=== PATIENT | female | born 1960 | race Caucasian/White ===

== ENCOUNTER → 2019-03-25 09:45 | Outpatient (CLI) | payer OTHER, SELFPAY ==
--- NOTE | 2019-03-25 | DI.MG.S_ITS ---
BILATERAL DIGITAL SCREENING MAMMOGRAM 3D/2D WITH CAD: 03/25/2019 CLINICAL: Routine screening. Comparison is made to exams dated: 10/20/2013 mammogram, 01/04/2016 mammogram, and 11/18/2011 mammogram - [facility]. There are scattered fibroglandular elements in both breasts. Current study was also evaluated with a Computer Aided Detection (CAD) system. No significant masses, calcifications, or other findings are seen in either breast. There has been no significant interval change. IMPRESSION: NEGATIVE There is no mammographic evidence of malignancy. A 1 year screening mammogram is recommended. This exam was interpreted at Station ID: [id number]. NOTE: For mammograms, a report in lay terms will be sent to the patient. Approximately 15% of breast malignancies will not be visualized mammographically. In the management of a palpable breast mass, a negative mammogram must not discourage biopsy of a clinically suspicious lesion. Electronically Signed By: Bunny cruz/mari:03/25/2019 18:28:12 letter sent: Normal Exam ACR BI-RADS Category 1: Negative 3341F
== END ==
PROVIDERS: PCP Family Medicine; Visit Provider Nurse Practitioner Family
DX: Z12.31 Encounter for screening mammogram for malignant neoplasm of breast (principal); M81.0 Age-related osteoporosis without current pathological fracture
CPT/HCPCS: 77063; 77067; 77080

== ENCOUNTER → 2020-09-19 12:30 | Outpatient (CLI) | payer OTHER, SELFPAY | PROVIDERS: PCP Family Medicine; Referring Provider Family Medicine; Visit Provider Family Medicine | DX: M81.0 Age-related osteoporosis without current pathological fracture (principal); Z78.0 Asymptomatic menopausal state | CPT/HCPCS: 77080 ==

== ENCOUNTER → 2020-09-29 11:17 | Outpatient (CLI) | payer OTHER, SELFPAY ==
--- NOTE | 2020-09-29 11:19 | DI.MG.S_ITS ---
BILATERAL DIGITAL SCREENING MAMMOGRAM 3D/2D WITH CAD: 09/29/2020 CLINICAL: Routine screening. Comparison is made to exams dated: 03/25/2019 mammogram, 01/04/2016 mammogram, and 10/20/2013 mammogram - [facility]. There are scattered fibroglandular elements in both breasts. Current study was also evaluated with a Computer Aided Detection (CAD) system. No significant masses, calcifications, or other findings are seen in either breast. There has been no significant interval change. IMPRESSION: NEGATIVE There is no mammographic evidence of malignancy. A 1 year screening mammogram is recommended. This exam was interpreted at Station ID: [id number]. NOTE: For mammograms, a report in lay terms will be sent to the patient. Approximately 15% of breast malignancies will not be visualized mammographically. In the management of a palpable breast mass, a negative mammogram must not discourage biopsy of a clinically suspicious lesion. Electronically Signed By: Maximilian harris/mari:10/01/2020 13:50:42 letter sent: Normal Exam ACR BI-RADS Category 1: Negative 3341F
== END ==
PROVIDERS: PCP Family Medicine; Referring Provider Family Medicine; Visit Provider Family Medicine
DX: Z12.31 Encounter for screening mammogram for malignant neoplasm of breast (principal)
CPT/HCPCS: 77063; 77067

== ENCOUNTER → 2021-01-02 09:36 | Outpatient (CLI) | payer OTHER, SELFPAY ==
[2021-01-02] MEDS: COVID-19 VACC #1, MRNA(MOD) 100 MCG/0.5 ML VIAL IM (09:47)
== END ==
PROVIDERS: PCP Family Medicine; Visit Provider Internal Medicine
DX: Z23 Encounter for immunization (principal)
CPT/HCPCS: 0011A; 91301

== ENCOUNTER → 2021-01-30 09:08 | Outpatient (CLI) | payer OTHER, SELFPAY ==
[2021-01-30] MEDS: COVID-19 VACC #2, MRNA(MOD) 100 MCG/0.5 ML VIAL IM (09:15)
== END ==
PROVIDERS: PCP Family Medicine; Visit Provider Internal Medicine
DX: Z23 Encounter for immunization (principal)
CPT/HCPCS: 0012A; 91301

== ENCOUNTER → 2022-09-02 12:21 | Outpatient (CLI) | payer OTHER, SELFPAY ==
--- NOTE | 2022-09-02 12:22 | DI.MG.S_ITS ---
BILATERAL DIGITAL SCREENING MAMMOGRAM 3D/2D WITH CAD: 09/02/2022 CLINICAL: Routine screening. Comparison is made to exams dated: 09/29/2020 mammogram, 03/25/2019 mammogram, and 01/04/2016 mammogram - [facility]. There are scattered areas of fibroglandular density in both breasts (category b / 25%-50% glandular tissue). Current study was also evaluated with a Computer Aided Detection (CAD) system. No significant masses, calcifications, or other findings are seen in either breast. There has been no significant interval change. IMPRESSION: NEGATIVE There is no mammographic evidence of malignancy. A 1 year screening mammogram is recommended. Based on the Tyrer Cuzick model (a risk assessment model) the patient's lifetime risk is 8.2% and her 10 year risk is 3.5%. According to the ACR, ACS, and NCCN guidelines, an annual breast MRI exam along with mammogram is recommended if the patient's lifetime risk is 20% or greater. This exam was interpreted at Station ID: [id number]. NOTE: For mammograms, a report in lay terms will be sent to the patient. Approximately 15% of breast malignancies will not be visualized mammographically. In the management of a palpable breast mass, a negative mammogram must not discourage biopsy of a clinically suspicious lesion. Electronically Signed By: William pike/mari:09/02/2022 14:28:31 letter sent: Normal Exam ACR BI-RADS Category 1: Negative 3341F
== END ==
PROVIDERS: PCP Family Medicine; Referring Provider Family Medicine; Visit Provider Family Medicine
DX: Z12.31 Encounter for screening mammogram for malignant neoplasm of breast (principal); M81.0 Age-related osteoporosis without current pathological fracture; Z79.83 Long term (current) use of bisphosphonates; Z78.0 Asymptomatic menopausal state
CPT/HCPCS: 77063; 77067; 77080

== ENCOUNTER 2022-09-10 09:23 | Day surgery (SDC) | payer OTHER, SELFPAY ==
--- NOTE | 2022-09-10 | PATH_ITS ---
[facility] Accession Number: [id number] . 01 Material submitted: . colon - HEPATIC FLEXURE COLON POLYP . 01 Diagnosis: Colon, Hepatic Flexure, Biopsy: Colonic mucosa with benign lymphoid aggregate. Negative for hyperplasia, dysplasia, and malignancy. . MRV 09/15/2022 1439 Local . 01 Electronically signed: . Ewelina Taylor MD, Pathologist NPI- [id number] . 01 Gross description: . HEPATIC FLEXURE COLON POLYP: Received in formalin is 1 fragment(s) of dawson, soft tissue measuring 0.3 x 0.2 x 0.1 cm submitted entirely in 1 cassette(s) /CPE 09/11/2022 0925 Local . 01 Pathologist provided ICD-10: Z12.11 . 01 CPT . 019590 Specimen Comment: A courtesy copy of this report has been sent to [phone] Performed at: 01 [facility] [address] [place] [address], [place], [place] [id number] MD Didier Seals MD Phone: [phone]
[2022-09-10 10:17] VITALS: BMI 23.6
--- NOTE | 2022-09-10 10:20 | PM.HP.1 ---
History of Present Illness History of Present Illness Date Patient Seen: 09/10/22 Time Patient Seen: 10:20 Chief complaint: SDC Narrative: Patient is a very pleasant 61-year-old female who presented for colonoscopy. Her last colonoscopy was 01/28/2016. She does state she has a personal history colon polyps. A 5 year recheck was recommended, though unfortunately do not have that report available for review today. Patient History Medical History (Updated 09/10/22 @ 10:13 by Zhang Modi RN) Dog bite of right upper extremity HTN (hypertension) Hyperlipidemia Family & Social History Tobacco & Substance use: Smoking Status Never smoker Meds Home Medications and Allergies Home Medications Medication Instructions Recorded Confirmed Type atenolol 50 mg tablet 50 mg PO QDAY ##0 02/20/08 09/10/22 History atorvastatin 10 mg tablet 10 mg DAILY 09/10/22 09/10/22 History citalopram 40 mg tablet 40 mg DAILY 09/10/22 09/10/22 History ibandronate 150 mg tablet See Rx Instructions .Route .COMPLEX 09/10/22 09/10/22 History Allergies Allergy/AdvReac Type Severity Reaction Status Date / Time Sulfa (Sulfonamide Allergy Intermediate Swelling Verified 09/10/22 10:08 Antibiotics) Review of Systems Review of Systems ROS: Yes All systems reviewed with the patient and are negative except as otherwise documented Exam Const General: cooperative, healthy appearing, comfortable, well developed and No acute distress HENMT Head: normocephalic and atraumatic Resp Effort & Inspection: normal respiratory effort, able to speak in complete sentences and no audible wheezes Auscultation: clear to auscultation bilaterally Cardio Rate: regular rate Rhythm: regular rhythm GI Palpation: soft Assessment & Plan Assessment & Plan narrative: 1. Personal history colon polyps, last colonoscopy 01/28/2016 Colonoscopy today, further recommendations to follow Time Spent With Patient Critical Care time: I spent a total of [] minutes of critical care time on this patient's care today; this time is exclusive of procedural time.
[2022-09-10] MEDS: LACTATED RINGERS 1,000 ML 42 ML IV (10:31)
[2022-09-10 10:49] LABS: COVID19 -Nasal RAPID Negative (Negative)
[2022-09-10 11:45] VITALS: BP 115/60; PULSE 68; RESP 15; TEMP 36.3; O2SAT 100
--- NOTE | 2022-09-10 11:46 | P.OP.COLON_ITS ---
Operative Date/Time/Diagnoses Date of procedure: 09/10/22 Time of procedure: 11:22 Procedure Notes Procedure in detail: Surgeon: Meme Evangelista DO Procedure: Colonoscopy with polypectomy Preoperative diagnosis: 1. Personal history colon polyps last colonoscopy 01/28/2016 Postoperative diagnosis: 1. 3 mm polyp at the hepatic flexure removed with cold forceps 2. Sigmoid diverticulosis 3. Internal hemorrhoids 4. Normal-appearing terminal ileum Medications: Monitored anesthesia care Preanesthesia Assessment An H and P was performed/updated and the Px?s ASA class is2. The procedure was discussed in detail with the patient. The potential risks and complications including infection, bleeding, missed lesions, perforation, need for surgery in case of perforation, prolonged hospital stay, and were explained. A brief question and answer period was allotted and once all questions were answered, informed consent was obtained. The patient was brought back to the procedure room and placed on standard monitoring. The patient?s vital signs were monitored continuously throughout the entire procedure. Prior to starting, a timeout was performed to confirm the patient?s identity, allergies, medications, and procedure. Procedure in detail The patient was placed in left lateral decubitus position and once adequate sedation was obtained a BRYAN was performed. The digital rectal examination did not reveal any palpable lesions. The tip of the colonoscope was placed in the anal canal and advanced without difficulty all the way to the cecum and terminal ileum which was identified by the appendiceal orifice and the ileocecal valve. Careful examination of all sparks of the colon was performed with irrigation of any residual stool. 3 mm polyp was noted in the hepatic flexure this was removed with Jumbo forceps. Blood loss was minimal. Sigmoid diverticulosis was noted. Grade 1-2 internal hemorrhoids noted on retroflexion. Terminal ileum appeared unremarkable. Exam is otherwise unremarkable. The patient tolerated the procedure well and will be brought back to the recovery area to be discharged once criteria are met. The prep was judged to be good/excellent and adequate to identify polyps less than 5 mm. The withdrawal t usama was 9min. Complications There were no complications and estimated blood loss was minimal. Recommendations: Resume previous diet, consider high-fiber diet Continue outPx medications Follow up pathology results Repeat colonoscopy will be determined after pathology results are reviewed An emergency contact number was given to the patient for any complications related to the procedure
[2022-09-10 11:50] VITALS: BP 107/67; PULSE 66; RESP 16; O2SAT 99
[2022-09-10 11:55] VITALS: BP 114/70; PULSE 81; RESP 17; TEMP 36; O2SAT 99
[2022-09-10 11:56] VITALS: BP 130/72; PULSE 69; RESP 17; TEMP 36.2; O2SAT 99
== END 2022-09-10 12:15 | disposition home or self-care (01) ==
PROVIDERS: PCP Family Medicine; Referring Provider Student in an Organized Health Care Education/Training Program; Visit Provider Student in an Organized Health Care Education/Training Program
PROC: 0DJD8ZZ Inspection of Lower Intestinal Tract, Via Natural or Artificial Opening Endoscopic (ICD-10-PCS; CPT 45378; principal; 2022-09-10 10:30)
DX: Z12.11 Encounter for screening for malignant neoplasm of colon (principal); Z86.010 Personal history of colon polyps; Z20.822 Contact with and (suspected) exposure to COVID-19; K57.30 Diverticulosis of large intestine without perforation or abscess without bleeding; K64.8 Other hemorrhoids
CPT/HCPCS: 45380; 87635; C9803; J2704

== ENCOUNTER 2024-05-20 11:32 | Observation (INO) | payer OTHER, SELFPAY ==
[2024-05-20] VITALS (13 sets, daily range): BP systolic 131–192; BP diastolic 70–82; PULSE 61–69; RESP 10–18; TEMP 36.2–36.5; O2SAT 95–100; BMI 24.3; BMI 24.8
--- NOTE | 2024-05-20 11:47 | DI.RAD.S_ITS ---
PROCEDURE: XR CHEST 1V INDICATIONS: Possible stroke TECHNIQUE: One view of the chest was acquired. COMPARISON: None. FINDINGS: Surgical changes and devices: None. Lungs and pleura: Lungs are clear. No pleural effusions or pneumothorax. Mediastinum: Mediastinal contours appear normal. Heart size is normal. Bones and chest wall: No suspicious bony lesions. Overlying soft tissues appear unremarkable. IMPRESSION: No acute cardiopulmonary abnormality is seen. Dictated by: Kevin Gonzales M.D. on 05/20/2024 at 12:58 Approved by: Kevin Gonzales M.D. on 05/20/2024 at 12:58
--- NOTE | 2024-05-20 11:48 | ED_ITS ---
HPI - Neuro Symptoms/Deficit General Chief Complaint: Neuro Symptoms/Deficit Stated Complaint: thinks is having a stroke Time Seen by Provider: 05/20/24 11:47 Source: patient Mode of arrival: Ambulatory History of Present Illness HPI Narrative: 63-year-old female with no history of known prior stroke or TIA symptoms, last known well 1030 this morning when left home, patient called proximally 11:00 a.m. and seemed to be confused, complaining that she could not remember what she was doing, drove home, patient seemed to be confused about why came home, could not recall the previous phone call with the , seemed to have short-term memory problems recent events per , came in for evaluation, shortly after triage proximally 1230pm she seemed to feel better, could then remember recent events and her making phone calls earlier today. She had no numbness or tingling to face arm or leg. No injury or trauma. She is to take aspirin daily but but ran out months ago and has not restarted the medication. No other blood thinner medications in the past or recent. On Anticoagulants: No Related Data Home Medications Medication Instructions Recorded Confirmed atorvastatin 10 mg tablet 10 mg PO DAILY 09/10/22 05/20/24 citalopram 40 mg tablet 40 mg PO DAILY 09/10/22 05/20/24 ibandronate 150 mg tablet See Rx Instructions .Route .COMPLEX 09/10/22 05/20/24 metoprolol succinate 50 mg 50 mg PO DAILY 05/20/24 05/20/24 tablet,extended release 24 hr Allergies Allergy/AdvReac Type Severity Reaction Status Date / Time Sulfa (Sulfonamide Allergy Intermediate Swelling Verified 05/20/24 11:40 Antibiotics) Review of Systems Review of Systems Narrative: see HPI Hematologic/Lymphatic On Anticoagulants: No Patient History Medical History Hyperlipidemia HTN (hypertension) Dog bite of right upper extremity Surgical History History of History of tonsillectomy Social History household members: spouse Smoking Status: Never smoker alcohol intake: current Smoking Status: Never smoker alcohol intake frequency: a few times a week Substance Use Type: does not use Exam Narrative Exam Narrative: GENERAL: Well-developed patient, in mild distress. HEAD: Atraumatic. Normocephalic. EYES: Pupils equal round and reactive. Extraocular motions intact. No scleral icterus. No injection or drainage. ENT: Nose without bleeding, purulent drainage. Throat without erythema, tonsillar hypertrophy or exudate. Airway patent. NECK: Trachea midline. Non tender CARDIOVASCULAR: Regular rate and rhythm without murmurs, gallops, or rubs. RESPIRATORY: Clear to auscultation. Breath sounds equal bilaterally. No wheezes, rales, or rhonchi. GASTROINTESTINAL: Abdomen soft, non-tender, nondistended. EXTREMITIES: No edema or joint tenderness. BACK: Nontender without deformity or crepitance. No flank tenderness. NEURO: AOx3. Clear speech, symptoms apparently had resolved. Motor 5/5 face arm and leg. Cranial nerves intact 2 through 12. Spwzwk-bh-bhhl testing normal. No deficits or problems identified, NIHSS score 0. SKIN: No rash or erythema of visible areas Initial Vital Signs Initial Vital Signs: Vital Signs Temperature 97.7 F 05/20/24 11:36 Pulse Rate 68 05/20/24 11:36 Respiratory Rate 18 05/20/24 11:36 Blood Pressure 165/82 H 05/20/24 11:36 Pulse Oximetry 98 05/20/24 11:36 Oxygen Delivery Method Room Air 05/20/24 11:36 Course Orders Ordered: ED Orders 05/20/24 11:47 CT Stroke Stat XR chest 1V Stat EKG-12 Lead Stat 05/20/24 11:50 Complete Blood Count AUTO DIFF Stat Comprehensive Metabolic Panel Stat Magnesium Stat PTT Partial Thromboplastin Nino Stat Prothrombin Time INR Stat Troponin & CK Cardiac Panel Stat 05/20/24 12:00 CT angio head and neck Stat 05/20/24 13:00 MR head/brain wo con Stat 05/20/24 13:02 EC echo doppler complete Stat 05/20/24 13:50 Urine Drug Screen, Rapid Stat Acetaminophen (Acetaminophen 325 Mg Tablet) 650 mg PO Q6H PRN PRN Reason: Fever/Mild Pain (1-3) Last Admin: 05/20/24 20:19 Dose: 650 mg Documented By: MS Al Hydrox/Mg Hydrox/Simethicone (Mag Hydrox/Alum/Simeth 30 Ml Udc) 30 ml PO Q6HR PRN PRN Reason: Dyspepsia Atorvastatin Calcium (Atorvastatin 20 Mg Tablet) 10 mg PO BEDTIME [facility] Last Admin: 05/20/24 20:19 Dose: 10 mg Documented By: MS Citalopram Hydrobromide (Citalopram 10 Mg Tablet) 40 mg PO DAILY [facility] Clopidogrel Bisulfate (Clopidogrel 75 Mg Tablet) 75 mg PO DAILY [facility] Magnesium Hydroxide (Magnesium Hydroxide 30 Ml Udc) 30 ml PO DAILY PRN PRN Reason: Constipation Metoprolol Succinate (Metoprolol Er 50 Mg Tablet) 50 mg PO DAILY [facility] Naloxone HCl (Naloxone 0.4 Mg/Ml Vial) 0.2 mg IV Q2MIN PRN PRN Reason: Opiate Reversal Ondansetron HCl (Ondansetron 4 Mg/2 Ml Inj) 4 mg IV NOW PRN PRN Reason: Nausea And Vomiting Ondansetron HCl (Ondansetron 4 Mg Odt) 4 mg SL NOW PRN PRN Reason: Nausea And Vomiting Ondansetron HCl (Ondansetron 4 Mg/2 Ml Inj) 4 mg IV Q8HR PRN PRN Reason: Nausea And Vomiting Discontinued Medications Aspirin (Aspirin 81 Mg Chew Tab) 324 mg PO NOW ONE Stop: 05/20/24 13:02 Last Admin: 05/20/24 13:47 Dose: 324 mg Documented By: RB Aspirin (Aspirin Ec 325 Mg Tablet) 325 mg PO DAILY [facility] Clopidogrel Bisulfate (Clopidogrel 75 Mg Tablet) 300 mg PO NOW ONE Stop: 05/20/24 18:38 Last Admin: 05/20/24 18:52 Dose: 300 mg Documented By: CLL Vital Signs Vital signs: Vital Signs - 8 hr 05/20/24 12:30 05/20/24 12:31 05/20/24 12:31 Pulse Rate 63 62 Respiratory Rate 18 17 Blood Pressure 158/71 H Pulse Oximetry 98 100 Oxygen Delivery Method Room Air 05/20/24 13:00 05/20/24 13:01 05/20/24 13:01 Pulse Rate 66 65 Respiratory Rate 17 14 Blood Pressure 192/79 H Pulse Oximetry 96 96 Oxygen Delivery Method 05/20/24 13:30 05/20/24 13:32 05/20/24 13:32 Pulse Rate 66 63 Respiratory Rate 11 L Blood Pressure 170/81 H Pulse Oximetry 97 Oxygen Delivery Method Room Air MDM - Neuro Symptoms/Deficit Lab Data Attestation: I reviewed the patient's lab results. 05/20/24 11:50 05/20/24 11:50 Labs: Lab Results 05/20/24 Range/Units 11:50 WBC 6.7 (4.5-11.0) X10^3/uL RBC 4.27 (4.0-5.2) X10^6/uL Hgb 13.2 (12.0-16.0) g/dL Hct 39.8 (36-46) % MCV 93.1 (80-100) fL MCH 30.8 (26-34) PG MCHC 33.1 (30-36) % RDW 12.9 (11.6-14.8) % Plt Count 166 (150-400) X10^3/uL Neut % (Auto) 52.7 (50-75) % Lymph % (Auto) 36.5 (25-40) % [place] % (Auto) 8.9 (3-14) % Eos % (Auto) 1.2 L (2-4) % Baso % (Auto) 0.7 (0-2) % Neut # (Auto) 3500 (5495-1274) /uL Lymph # (Auto) 2500 (5397-8841) /uL [place] # (Auto) 600 (0-900) /uL Eos # (Auto) 100 (0-450) /uL Baso # (Auto) 0 (0-100) /uL PT 11.8 (9.4-12.5) SECONDS INR 1.0 (0.9-1.3) APTT 31 (25.1-36.5) SECONDS Sodium 140 (137-145) mmol/L Potassium 4.1 (3.4-5.1) mmol/L Chloride 106 (98-107) mmol/L Carbon Dioxide 25 (22-32) mmol/L BUN 15 (7-17) mg/dL Creatinine 0.67 (0.52-1.04) mg/dL Estimated GFR > 60 (>60) mL/min BUN/Creatinine Ratio 22.4 H (6-22) Glucose 104 (80-110) mg/dL Calcium 9.4 (8.4-10.2) mg/dL Magnesium 2.1 (1.6-2.3) mg/dL Total Bilirubin 0.7 (0.2-1.3) mg/dL AST 27 (14-36) IU/L ALT 24 (<35) IU/L Alkaline Phosphatase 64 (38-126) U/L Total Creatine Kinase 90 (30-135) U/L Troponin I < 0.012 (0.01-0.034) ng/mL Total Protein 7.1 (6.3-8.2) g/dL Albumin 4.5 (3.5-5.0) g/dL Globulin 2.6 (1.7-4.1) g/dL Albumin/Globulin Ratio 1.7 (1.0-2.8) Point of Care Testing Glucose POC [address] scan - head: Radiologist's Impression: Close Head/Neck CTA (Signed) Peng Hernandez - 05/20/[address] (Signed) Kevin Gonzales - 05/20/24 Chest X-Ray 05/20/24 [place] [address] CT Scan Report Signed Patient: Argelia Mccoy V MR#: [id number] : 1960 Acct:[id number] Age/Sex: 63 / F Date of Service: 05/20/24 Loc: ED Accession Number: [id number] Procedure: CT Stroke Ordering Provider: Rupert Kenny MD PROCEDURE: CT STROKE INDICATIONS: sudden onset memory loss TECHNIQUE: Noncontrast 4.5 mm thick angled axial sections acquired from the foramen magnum to the vertex, with coronal reformats. For radiation dose reduction, the following was used: automated exposure control, adjustment of mA and/or kV according to patient size. COMPARISON: None. FINDINGS: Image quality: Diagnostic. CSF spaces: Basal cisterns are patent. No extra-axial fluid collections. The ventricles are symmetric in size and shape. Brain: No intracranial bleeds or masses. There is cerebral volume loss for age, with resultant ventricular and sulcal prominence. There are periventricular and deep white matter chronic small vessel ischemic changes. There is intracranial internal carotid artery atherosclerosis. Skull and face: Calvarium and visualized facial bones appear intact, without suspicious lesions. Sinuses: Small fluid within the posterior left ethmoid air cells. Visualized sinuses and mastoids are otherwise clear. IMPRESSION: No acute intracranial pathology. Findings discussed with Dr. Kenny at the time of dictation. This study fulfills neurological imaging criteria for inclusion or exclusion of acute stroke therapies based on available published neurological guidelines. Dictated by: Kevin Gonzales M.D. on 05/20/2024 at 12:04 Approved by: Kevin Gonzales M.D. on 05/20/2024 at 12:08 CTA - brain/neck: Radiologist's Impression: [address] [address] [address] Scan Report Signed Patient: Argelia Mccoy V MR#: [id number] : 1960 Acct:[id number] Age/Sex: 63 / F Date of Service: 05/20/24 Loc: ED Accession Number: [id number] Procedure: CT angio head and neck Ordering Provider: Rupert Kenny MD PROCEDURE: CT ANGIO HEAD AND NECK INDICATIONS: Stroke symptoms TECHNIQUE: After the administration of intravenous contrast, 1 mm thick sections acquired from the aortic arch through the [place] of [place]. 3-dimensional qyfjybh-exssomhos-qsvcgsceip (MIP) and/or volume rendering reformats were acquired of the central intracranial vasculature and neck separately. For radiation dose reduction, the following was used: automated exposure control, adjustment of mA and/or kV according to patient size. COMPARISON: [facility], CT, CT STROKE, 05/20/2024, 11:51. (A prior carotid ultrasound is not available for review from the archive at the time of this dictation. FINDINGS: Image quality: There is artifact associated with the metallic hardware. Artifact from the metallic hardware is reduced by metal reconstruction algorithm. Limited by bolus timing, with venous contamination. BRAIN: CSF spaces: Ventricles are normal in size and shape. Basal cisterns are patent. No extra-axial fluid collections. Brain: No significant abnormality of the brain can be seen. Skull and face: Calvarium and facial bones appear intact, without suspicious lesions. Orbits appear normal. Sinuses: Sinuses and mastoids are clear. HEAD CT ANGIOGRAPHY: Anterior circulation: Intracranial internal carotid arteries are normal in size and flow. There is a diminutive left A1 segment, with a corresponding robust right A1 segment. This is considered to be a normal developmental variant of the [place], of typically no clinical consequence. The flow within the paired anterior cerebral arteries is otherwise normal and symmetric. The flow within the middle cerebral arteries is normal and symmetric. The anterior communicating artery is seen. No aneurysms are seen. Posterior circulation: Visualized portions of the vertebral arteries demonstrate normal caliber, and join to form a normal appearing basilar artery. Flow within the posterior cerebral arteries is normal and symmetric. No aneurysms are seen. NECK CT ANGIOGRAPHY: Carotid system: The great vessels demonstrate a conventional anatomy as they arise from the aortic arch. The origins of the common carotid arteries appear patent. The common carotid arteries demonstrate normal caliber and courses. The bifurcation regions are both widely patent. The internal carotid arteries demonstrate normal calibers and courses. Posterior circulation: The origins of the vertebral arteries both appear widely patent. The more superior extracranial portions of both vertebral arteries also demonstrate normal courses and calibers. They join to form a normal appearing basilar artery. Soft tissues: Visualized neck soft tissues demonstrate no suspicious abnormalities. Bones: No suspicious bony lesions. Visualized cervical spine appears normally aligned. IMPRESSION: No significant intracranial arterial abnormality is seen. No significant abnormality is seen within the arteries of the neck. Any quantitative measurements of stenosis were performed using NASCET criteria. Dictated by: Peng Hernandez M.D. on 05/20/2024 at 11:39 Approved by: Peng Hernandez M.D. on 05/20/2024 at 11:41 ECG Data Attestation: I personally reviewed and interpreted this ECG as follows: Interpretation: Normal sinus rhythm with rate of 67, no obvious ST segment elevation or depression changes. Fairly flat T-waves amplitude lead 3 but more upright in leads 2 and F contiguous inferior leads. OH 134, QRS 88, QTC 416. [facility] Narrative Medical decision making narrative: 63-year-old female with transient short term memory loss that apparently is new, last known well 1030, phoned her 11:00 a.m. and seemed to be not able to remember to short-term events or what she was just doing, and did not recall calling him prior when he arrived at home, symptoms seemed to resolve a proximally 12:30 p.m., for a proximally 1.5 hours duration. She no longer takes aspirin, or other blood thinner medications. CT head and CTA head and neck vessels stroke protocol ordered from triage. EKG shows normal sinus rhythm. Labs pending. Laboratory studies unremarkable. CT head noncontrast study no acute changes, see radiology report. CT angiogram head and neck vessels no thromboses or significant narrowing, see radiology report. Chewable aspirin 324 mg given orally. Patient has no obvious contraindication to MRI, MRI brain noncontrast study ordered, to be worked in schedule later today if possible. Echocardiogram with bubble study requested, if patient can be worked into the schedule later today if possible. Admit for continuous telemetry monitoring for TIA symptoms. PCP Dr. Gardiner, will contact for admission 1320, case discussed with PCP Dr. Richardson, accepts patient for admission to telemetry observation, aware MRI Brain and Echocardiogram studies requested, still to be performed. Critical Care Time Critical Care Time Total Critical Care Time: 35 Attestation: The high probability of a clinically significant, sudden or life threatening deterioration of the [cerebrovascular, neurologic, Cardiothoracic] system(s) required my full and direct attention, intervention and personal management. The aggregate critical care time was [35] minutes. This time is in addition to time spent performing reported procedures but includes the following: [x] Data Review and interpretation [x] Patient assessment and monitoring of vital signs [x] Documentation [x] Medication orders and management Discharge Plan Departure Patient Disposition: Admitted as Observation Clinical Impression: Transient ischemic attack Admit Date/Time: 05/20/24 13:35 Admit Provider: Dmitriy Gardiner
--- NOTE | 2024-05-20 12:00 | DI.CT.S_ITS ---
PROCEDURE: CT ANGIO HEAD AND NECK INDICATIONS: Stroke symptoms TECHNIQUE: After the administration of intravenous contrast, 1 mm thick sections acquired from the aortic arch through the [place] of [place]. 3-dimensional zqkoenn-frmzxoygd-rxytdkpmuy (MIP) and/or volume rendering reformats were acquired of the central intracranial vasculature and neck separately. For radiation dose reduction, the following was used: automated exposure control, adjustment of mA and/or kV according to patient size. COMPARISON: [facility], CT, CT STROKE, 05/20/2024, 11:51. (A prior carotid ultrasound is not available for review from the archive at the time of this dictation. FINDINGS: Image quality: There is artifact associated with the metallic hardware. Artifact from the metallic hardware is reduced by metal reconstruction algorithm. Limited by bolus timing, with venous contamination. BRAIN: CSF spaces: Ventricles are normal in size and shape. Basal cisterns are patent. No extra-axial fluid collections. Brain: No significant abnormality of the brain can be seen. Skull and face: Calvarium and facial bones appear intact, without suspicious lesions. Orbits appear normal. Sinuses: Sinuses and mastoids are clear. HEAD CT ANGIOGRAPHY: Anterior circulation: Intracranial internal carotid arteries are normal in size and flow. There is a diminutive left A1 segment, with a corresponding robust right A1 segment. This is considered to be a normal developmental variant of the [place], of typically no clinical consequence. The flow within the paired anterior cerebral arteries is otherwise normal and symmetric. The flow within the middle cerebral arteries is normal and symmetric. The anterior communicating artery is seen. No aneurysms are seen. Posterior circulation: Visualized portions of the vertebral arteries demonstrate normal caliber, and join to form a normal appearing basilar artery. Flow within the posterior cerebral arteries is normal and symmetric. No aneurysms are seen. NECK CT ANGIOGRAPHY: Carotid system: The great vessels demonstrate a conventional anatomy as they arise from the aortic arch. The origins of the common carotid arteries appear patent. The common carotid arteries demonstrate normal caliber and courses. The bifurcation regions are both widely patent. The internal carotid arteries demonstrate normal calibers and courses. Posterior circulation: The origins of the vertebral arteries both appear widely patent. The more superior extracranial portions of both vertebral arteries also demonstrate normal courses and calibers. They join to form a normal appearing basilar artery. Soft tissues: Visualized neck soft tissues demonstrate no suspicious abnormalities. Bones: No suspicious bony lesions. Visualized cervical spine appears normally aligned. IMPRESSION: No significant intracranial arterial abnormality is seen. No significant abnormality is seen within the arteries of the neck. Any quantitative measurements of stenosis were performed using NASCET criteria. Dictated by: Peng Hernandez M.D. on 05/20/2024 at 11:39 Approved by: Peng Hernandez M.D. on 05/20/2024 at 11:41
[2024-05-20 12:02] LABS: Add Manual Diff / Slide Review NO; Basophils Absolute Auto 0 /uL (0-100); Basophils Percent Auto 0.7 % (0-2); Eosinophils Absolute Auto 100 /uL (0-450); Eosinophils Percent Auto 1.2 % (2-4); Hematocrit 39.8 % (36-46); Hemoglobin 13.2 g/dL (12.0-16.0); Lymphocytes Absolute Auto 2500 /uL (1100-4500); Lymphocytes Percent Auto 36.5 % (25-40); Mean Corpuscular HGB Conc 33.1 % (30-36); Mean Corpuscular Hemoglobin 30.8 PG (26-34); Mean Corpuscular Volume 93.1 fL (80-100); Monocytes Absolute Auto 600 /uL (0-900); Monocytes Percent Auto 8.9 % (3-14); Neutrophils Absolute Auto 3500 /uL (1500-7000); Neutrophils Percent Auto 52.7 % (50-75); Platelet Count 166 X10^3/uL (150-400); Red Blood Cell Count 4.27 X10^6/uL (4.0-5.2); Red Cell Distribution Width 12.9 % (11.6-14.8); White Blood Cell Count 6.7 X10^3/uL (4.5-11.0)
--- NOTE | 2024-05-20 12:05 | PC.NURSE ---
Pt spouse reports last being with patient at 1030 this morning stating pt appeared and acted normal. Around 1100 pt called spouse and endorsed feeling weird and spouse states confusion. 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 Pt's spouse drove back to the house where patient was, and on his way their pt called again with confusion, feeling weird, and did not recall that she had previously called her . At this time stayed on the phone with patient until he got home. 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 Pt has recall now regarding selling the rental unit and buying property in [place]. She states thats so weird that I couldnt remember. NIH 0.
[2024-05-20 12:08] LABS: Prothrombin Time 11.8 SECONDS (9.4-12.5)
[2024-05-20 12:11] LABS: PTT Partial Thromboplastin Tim 31 SECONDS (25.1-36.5)
[2024-05-20 12:13] LABS: Alanine Aminotransferase 24 IU/L (<35); Albumin 4.5 g/dL (3.5-5.0); Albumin Globulin Ratio 1.7 (1.0-2.8); Alkaline Phosphatase 64 U/L (38-126); Aspartate Aminotransferase 27 IU/L (14-36); BUN Creatinine Ratio 22.4 (6-22); Bilirubin Total 0.7 mg/dL (0.2-1.3); Blood Urea Nitrogen 15 mg/dL (7-17); Calcium 9.4 mg/dL (8.4-10.2); Carbon Dioxide 25 mmol/L (22-32); Chloride 106 mmol/L (98-107); Creatine Kinase 90 U/L (30-135); Estimated Glomerular Filt Rate > 60 mL/min (>60); Globulin 2.6 g/dL (1.7-4.1); Glucose 104 mg/dL (80-110); HEMOLYSIS < 15 (0-50); Magnesium 2.1 mg/dL (1.6-2.3); Potassium 4.1 mmol/L (3.4-5.1); Sodium 140 mmol/L (137-145); Total Protein 7.1 g/dL (6.3-8.2)
--- NOTE | 2024-05-20 12:17 | EKG_ITS ---
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
[2024-05-20 12:25] LABS: Troponin I < 0.012 ng/mL (0.01-0.034)
--- NOTE | 2024-05-20 13:00 | DI.MRI.S_ITS ---
PROCEDURE: MR HEAD/BRAIN WO CON INDICATIONS: transient memory loss, recovered TECHNIQUE: Non-contrast axial T1 spin echo, axial T2 fast spin echo, sagittal and axial FLAIR, coronal T2 fast spin echo, axial gradient echo, axial diffusion and ADC through the brain. COMPARISON: [facility], CT, CT ANGIO HEAD AND NECK, 05/20/2024, 11:58. [facility], CT, CT STROKE, 05/20/2024, 11:51. FINDINGS: Image quality: Diagnostic, with note made of motion artifact. CSF spaces: Ventricles appear symmetric in size and shape. Basal cisterns are patent. No extra-axial fluid collections. Brain: No intracranial bleeds or mass effects. There is cerebral volume loss for age. There are periventricular and deep white matter chronic small vessel ischemic changes. Brainstem appears normal. Diffusion-weighted images show no acute infarct. No chronic ischemic insults. Normal intravascular flow voids are present. Skull and face: Calvarial bone marrow is normal in signal. Orbits are normal. Sinuses: Focal mucosal thickening can be seen within the inferior left maxillary sinus. Milder mucosal thickening can be seen elsewhere within the paranasal sinuses. No abnormal fluid is seen within the mastoid air cells. IMPRESSION: No findings of acute or subacute infarction can be seen. Dictated by: Peng Hernandez M.D. on 05/20/2024 at 14:03 Approved by: Peng Hernandez M.D. on 05/20/2024 at 14:04
[2024-05-20] MEDS: ASPIRIN 81 MG CHEW TAB 324 MG PO (13:47)
[2024-05-20 14:01] LABS: Ur Creatinine Normal (Normal); Ur Specific Gravity Normal (Normal); Urine pH Normal (Normal)
[2024-05-20 14:02] LABS: Urine Amphetamines Negative (Negative); Urine Barbiturates Negative (Negative); Urine Benzodiazepines Negative (Negative); Urine Cocaine Negative (Negative); Urine MDMA Negative (Negative); Urine Methadone Negative (Negative); Urine Methamphetamines Negative (Negative); Urine Opiates Negative (Negative); Urine Oxycodone Negative (Negative); Urine Phencyclidine Negative (Negative); Urine THC Negative (Negative); Urine Tricyclic Antidepressant Negative (Negative)
--- NOTE | 2024-05-20 15:28 | PC.NURSE ---
Addendum entered by Danitza Tatum R.N. 05/20/24 17:40: Patient is tolerating a general diet without any swallowing issues. Dr. Gardiner will be into see patient soon. Original Note: Patient states that she lost memory from the last 30 to 40 days and is slowly regaining her memory. She denies headache at this time. NIH scale a O. Patient down and back from MRI. She is resting in bed and visiting with her .
--- NOTE | 2024-05-20 18:31 | P.HP_ITS ---
History of Present Illness History of Present Illness Date Patient Seen: 05/20/24 Time Patient Seen: 18:31 Date of Onset of Symptoms: 05/20/24 Chief complaint: thinks is having a stroke Narrative: Patient is a 63-year-old female who presents with short term memory loss. Patient has history of known PFO with no previous treatment other than aspirin who is dates she has been off her aspirin for a month or 2. She otherwise has a history SVT. No other changes. Has been doing extremely well though had an event yesterday of SVT and just rested and it went away. She has been on metoprolol for that. Woke up today feeling great. 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 Lost her memory for most of that period of time. Called her did not know really what she was saying was confused. She had no numbness tingling difficulty with motor no other changes. No headaches no visual changes does have history of migraines. By the time she got to the ER approximately 2 hours later completely normal. Remembers everything except about a 10 minute window. She has otherwise felt well. And has no other changes or complaints. FOR[facility]LY [facility] Medical History Hyperlipidemia HTN (hypertension) Dog bite of right upper extremity Surgical History History of History of tonsillectomy Social History household members: spouse Smoking Status: Never smoker alcohol intake: current Meds Home Medications and Allergies Home Medications Medication Instructions Recorded Confirmed Type atorvastatin 10 mg tablet 10 mg PO DAILY 09/10/22 05/20/24 History citalopram 40 mg tablet 40 mg PO DAILY 09/10/22 05/20/24 History ibandronate 150 mg tablet See Rx Instructions .Route .COMPLEX 09/10/22 05/20/24 History metoprolol succinate 50 mg 50 mg PO DAILY 05/20/24 05/20/24 History tablet,extended release 24 hr Allergies Allergy/AdvReac Type Severity Reaction Status Date / Time Sulfa (Sulfonamide Allergy Intermediate Swelling Verified 05/20/24 11:40 Antibiotics) Review of Systems Review of Systems Narrative: Negative except above Exam Vital Signs (past 8 hours): - 05/20/24 11:36 05/20/24 11:50 05/20/24 12:04 Temperature 97.7 F Pulse Rate 68 67 69 Respiratory Rate 18 10 L Blood Pressure 165/82 H Pulse Oximetry 98 100 95 Oxygen Delivery Method Room Air Room Air 05/20/24 12:30 05/20/24 12:31 05/20/24 12:31 Temperature Pulse Rate 63 62 Respiratory Rate 18 17 Blood Pressure 158/71 H Pulse Oximetry 98 100 Oxygen Delivery Method Room Air 05/20/24 13:00 05/20/24 13:01 05/20/24 13:01 Temperature Pulse Rate 66 65 Respiratory Rate 17 14 Blood Pressure 192/79 H Pulse Oximetry 96 96 Oxygen Delivery Method 05/20/24 13:30 05/20/24 13:32 05/20/24 13:32 Temperature Pulse Rate 66 63 Respiratory Rate 11 L Blood Pressure 170/81 H Pulse Oximetry 97 Oxygen Delivery Method Room Air 05/20/24 15:00 Temperature 97.2 F L Pulse Rate 61 Respiratory Rate 16 Blood Pressure 138/70 Pulse Oximetry 100 Oxygen Delivery Method Oxygen Delivery Method Room Air Narrative Exam Narrative: Alert female middle-aged no acute distress HEENT exam is unremarkable neck supple without adenopathy JVD or bruits lungs are clear heart is regular rate and rhythm without murmurs clicks rubs or gallops abdomen is soft positive bowel sounds nontender. Neurologic exam shows cranial nerves 2-12 are intact motor is 5/5 reflexes 2+ and symmetric sensations intact. Did not ambulate Objective Labs 05/20/24 11:50 05/20/24 11:50 Labs: Laboratory Results - last 24 hr 05/20/24 05/20/24 11:50 13:50 WBC 6.7 RBC 4.27 Hgb 13.2 Hct 39.8 MCV 93.1 MCH 30.8 MCHC 33.1 RDW 12.9 Plt Count 166 Neut % (Auto) 52.7 Lymph % (Auto) 36.5 [place] % (Auto) 8.9 Eos % (Auto) 1.2 L Baso % (Auto) 0.7 Neut # (Auto) 3500 Lymph # (Auto) 2500 [place] # (Auto) 600 Eos # (Auto) 100 Baso # (Auto) 0 PT 11.8 INR 1.0 APTT 31 Sodium 140 Potassium 4.1 Chloride 106 Carbon Dioxide 25 BUN 15 Creatinine 0.67 Estimated GFR > 60 BUN/Creatinine Ratio 22.4 H Glucose 104 Calcium 9.4 Magnesium 2.1 Total Bilirubin 0.7 AST 27 ALT 24 Alkaline Phosphatase 64 Total Creatine Kinase 90 Troponin I < 0.012 Total Protein 7.1 Albumin 4.5 Globulin 2.6 Albumin/Globulin Ratio 1.7 U Opiates 300ng/mL cut Negative Ur Oxycodone Screen Negative Urine Methadone Screen Negative Ur Barbiturates Screen Negative U Tricyclic Antidepress Negative Ur Phencyclidine Scrn Negative Ur Amphetamines Screen Negative U Methamphetamines Scrn Negative Ur MDMA Scrn (Ecstasy) Negative U Benzodiazepines Scrn Negative Urine Cocaine Screen Negative U Marijuana (THC) Screen Negative Urine pH Normal Urine Specific [place] Normal Ur Creatinine Normal Assessment & Plan Assessment & Plan narrative: Memory changes. Possible TIA versus possible migraine. At this point with patient off of her aspirin having known PFO possible TIA. CT CT angio MRI all normal. No evidence of abnormality on tele or EKG. Although arrhythmias certainly possible. At this point discussed with the patient she would like to start Plavix at least short term. 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 Based on what they feel and her stability we will not push any further for migraine treatment or other options. Patient understands questions answered certainly completely recovered at this point. History of PFO. Will follow-up echo and follow from there. History of SVT. On metoprolol will continue. Hyperlipidemia. Continue usual meds. Anxiety. Continue citalopram Code status full. DVT prophylaxis should be adequately covered with Plavix ambulation low risk for DVT no evidence for need for Lovenox Disposition home discharge tomorrow. Time-Based Coding :: [TOTAL MINUTES] spent with patient and on the chart (including review of chart, obtaining history, exam, reviewing outside data, placing orders, documenting exam and treatment plan, and counseling patient) on [DATE]. Quality VTE Deep Vein Thrombosis/Pulmonary Embolism Present on Admission: No
[2024-05-20] MEDS: CLOPIDOGREL 75 MG TABLET 300 MG PO (18:52)
[2024-05-20] MEDS: ACETAMINOPHEN 325 MG TABLET 650 MG PO (20:19)
[2024-05-20] MEDS: ATORVASTATIN 20 MG TABLET 10 MG PO (20:19)
[2024-05-21 04:47] VITALS: BP 127/72; PULSE 72; RESP 16; TEMP 36.8; O2SAT 98
[2024-05-21 05:27] LABS: Add Manual Diff / Slide Review NO; Basophils Absolute Auto 0 /uL (0-100); Basophils Percent Auto 0.5 % (0-2); Eosinophils Absolute Auto 100 /uL (0-450); Eosinophils Percent Auto 1.5 % (2-4); Hematocrit 38.7 % (36-46); Lymphocytes Absolute Auto 2200 /uL (1100-4500); Lymphocytes Percent Auto 35.5 % (25-40); Mean Corpuscular HGB Conc 33.6 % (30-36); Mean Corpuscular Volume 92.2 fL (80-100); Monocytes Absolute Auto 600 /uL (0-900); Monocytes Percent Auto 9.1 % (3-14); Neutrophils Absolute Auto 3400 /uL (1500-7000); Neutrophils Percent Auto 53.4 % (50-75); Platelet Count 164 X10^3/uL (150-400); Red Blood Cell Count 4.19 X10^6/uL (4.0-5.2); Red Cell Distribution Width 13.1 % (11.6-14.8); White Blood Cell Count 6.3 X10^3/uL (4.5-11.0)
[2024-05-21 05:39] LABS: BUN Creatinine Ratio 16.9 (6-22); Blood Urea Nitrogen 11 mg/dL (7-17); Calcium 9.2 mg/dL (8.4-10.2); Carbon Dioxide 27 mmol/L (22-32); Chloride 108 mmol/L (98-107); Estimated Glomerular Filt Rate > 60 mL/min (>60); Glucose 99 mg/dL (80-110); HEMOLYSIS < 15 (0-50); Potassium 4.2 mmol/L (3.4-5.1); Sodium 140 mmol/L (137-145)
[2024-05-21 07:00] VITALS: O2SAT 98
[2024-05-21 08:00] VITALS: BP 130/67; PULSE 74; RESP 16; TEMP 36.4; O2SAT 97
[2024-05-21] MEDS: METOPROLOL ER 50 MG TABLET PO (08:31)
[2024-05-21] MEDS: CLOPIDOGREL 75 MG TABLET PO (08:31)
[2024-05-21] MEDS: CITALOPRAM 10 MG TABLET 40 MG PO (08:31)
--- NOTE | 2024-05-21 09:26 | CM.DANOTE ---
Initial DCP Assessment Note Pt is a 63 yo female, resident of [place], arrives with stroke like sx, admitted for stroke work up PCP: Dmitriy Gardiner Payer: Leo Reviewed chart, met w/patient to introduce self and role. 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 Patient eager to speak with the attending provider today and eager to return home, plans to follow closely with cardiology. No barriers identified at this time to patient's safe discharge home w/family to assist; close outpatient f/u recommended. CM team will plan to follow clinical course closely in case any DC needs or concerns arise. 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 No History Provided By Patient,Medical Record Prior Living Arrangements House Household Members spouse Type of transporation used prior to Drives own vehicle admit Independent with ADL's Yes Is patient alert and oriented? Yes Barriers to Discharge No Comment Outpatient follow up recommended. Discharge Plan Home Transportation Arrangement Family Referrals Initiated None needed
--- NOTE | 2024-05-21 10:14 | PM.DS.1 ---
History of Present Illness History of Present Illness Date Patient Seen: 05/21/24 Time Patient Seen: 10:14 Date of Onset of Symptoms: 05/20/24 Chief complaint: thinks is having a stroke Narrative: Patient is a 63-year-old female who presents with short term memory loss. Patient has history of known PFO with no previous treatment other than aspirin who is dates she has been off her aspirin for a month or 2. She otherwise has a history SVT. No other changes. Has been doing extremely well though had an event yesterday of SVT and just rested and it went away. She has been on metoprolol for that. Woke up today feeling great. 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 Lost her memory for most of that period of time. Called her did not know really what she was saying was confused. She had no numbness tingling difficulty with motor no other changes. No headaches no visual changes does have history of migraines. By the time she got to the ER approximately 2 hours later completely normal. Remembers everything except about a 10 minute window. She has otherwise felt well. And has no other changes or complaints. Discharge Providers Provider Date of admission: 05/20/24 13:35 Discharge Date: 05/21/24 Primary care physician: Dmitriy Gardiner MD Discharge provider: Dmitriy Gardiner MD Summary Hospital Course Discharge Diagnosis: Memory changes History of PFO History of SVT Hyperlipidemia Anxiety Hospital Course: Memory changes. Patient was admitted to the hospital with completely normalize symptoms. Normal exam. CT CTA MRI all normal. Echo is pending at this time still. Tele with no abnormality. Patient with history of PFO and was started on aspirin after discussion with the patient she would like to go to Plavix. Which is not unreasonable at least for the 1st 4-6 weeks. Patient without symptoms. Question whether this is secondary to migraine or possible TIA. Unclear at this time. I am not sure how we are going to clarify. We are going to stay on her Plavix we are going to have the events director see her has not outpatient and we will re-evaluate. She understands questions answered discussed options follow-up next week. History of PFO. Patient echo is pending. But anticipate no change. Will not see definitively secondary to no bubble study. Will follow up with events director but will discharge on Plavix. History of SVT. On metoprolol will continue. Will follow. No other change. Tele was negative. Doubt this is significant blood pressure was slightly elevated will have to follow but no change at this time. Hyperlipidemia. Usual meds no change Anxiety stable. Exam Vital Signs (past 8 hours): - 05/21/24 04:47 05/21/24 07:00 05/21/24 08:00 Temperature 98.2 F 97.6 F Pulse Rate 72 74 Respiratory Rate 16 16 Blood Pressure 127/72 130/67 Pulse Oximetry 98 98 97 Oxygen Delivery Method Room Air Oxygen Delivery Method Room Air Narrative Exam Narrative: Alert female in no acute distress. Lungs are clear heart is regular rate and rhythm neurologic exam is unremarkable Objective Labs 05/21/24 04:40 05/21/24 04:40 Labs: Laboratory Results - last 24 hr 05/20/24 05/20/24 05/21/24 11:50 13:50 04:40 WBC 6.7 6.3 RBC 4.27 4.19 Hgb 13.2 13.0 Hct 39.8 38.7 MCV 93.1 92.2 MCH 30.8 31.0 MCHC 33.1 33.6 RDW 12.9 13.1 Plt Count 166 164 Neut % (Auto) 52.7 53.4 Lymph % (Auto) 36.5 35.5 [place] % (Auto) 8.9 9.1 Eos % (Auto) 1.2 L 1.5 L Baso % (Auto) 0.7 0.5 Neut # (Auto) 3500 3400 Lymph # (Auto) 2500 2200 [place] # (Auto) 600 600 Eos # (Auto) 100 100 Baso # (Auto) 0 0 PT 11.8 INR 1.0 APTT 31 Sodium 140 140 Potassium 4.1 4.2 Chloride 106 108 H Carbon Dioxide 25 27 BUN 15 11 Creatinine 0.67 0.65 Estimated GFR > 60 > 60 BUN/Creatinine Ratio 22.4 H 16.9 Glucose 104 99 Calcium 9.4 9.2 Magnesium 2.1 Total Bilirubin 0.7 AST 27 ALT 24 Alkaline Phosphatase 64 Total Creatine Kinase 90 Troponin I < 0.012 Total Protein 7.1 Albumin 4.5 Globulin 2.6 Albumin/Globulin Ratio 1.7 U Opiates 300ng/mL cut Negative Ur Oxycodone Screen Negative Urine Methadone Screen Negative Ur Barbiturates Screen Negative U Tricyclic Antidepress Negative Ur Phencyclidine Scrn Negative Ur Amphetamines Screen Negative U Methamphetamines Scrn Negative Ur MDMA Scrn (Ecstasy) Negative U Benzodiazepines Scrn Negative Urine Cocaine Screen Negative U Marijuana (THC) Screen Negative Urine pH Normal Urine Specific [place] Normal Ur Creatinine Normal PFSH Medical History Hyperlipidemia HTN (hypertension) Dog bite of right upper extremity Surgical History History of History of tonsillectomy Social History household members: spouse Smoking Status: Never smoker alcohol intake: current Discharge Assessment & Plan Assessment and Plan Assessment: Improved Plan of Treatment: Discharge home Discharge Plan Discharge Plan Patient Disposition: Home Discharge orders & Medications Prescriptions: New clopidogrel 75 mg Tablet 75 mg PO DAILY Qty: 30 1RF Continued metoprolol succinate 50 mg tablet extended release 24 hr 50 mg PO DAILY ibandronate 150 mg tablet See Rx Instructions .ROUTE .COMPLEX Patient Comments: TAKE ONE TABLET BY MOUTH ONCE MONTHLY WITH LARGE GLASS OF WATER. DO NOT LAY DOWN FOR 45 MINUTES AFTER TAKING. Rx Instructions: bone density drug citalopram 40 mg tablet 40 mg PO DAILY Patient Comments: TAKE 1 TABLET BY MOUTH DAILY FOR DEPRESSION OR ANXIETY atorvastatin 10 mg tablet 10 mg PO DAILY Patient Comments: TAKE 1 TABLET BY MOUTH EVERY DAY Follow up/Referrals: Dmitriy Gardiner MD [Primary Care Provider] - 05/24/24 (Call for appointment on Thursday for Thursday or Thursday) Discharge Health Status Multidrug resistant organism: No MDRO Diet/Activity/Treatments Diet: Diet as Tolerated Activity: As tolerated Visit Report/Discharge Packet Stand Alone Forms: Patient Portal/API, Stroke Signs & Symptoms Discharge Data Primary Care Provider: Dmitriy Gardiner Attending Provider: Dmitriy Gardiner Admit Date/Time: 05/20/24 13:35 Quality VTE Deep Vein Thrombosis/Pulmonary Embolism Present on Admission: No
--- NOTE | 2024-05-23 16:26 | DI.ECHO.S_ITS ---
[place] [place] [facility]+ [facility] : : [id number] : : [id number] : : Phone: [phone] Echocardiogram Report + + :Name: CASSIE MANUEL V Study Date: 05/20/2024 Height: 67 in : :[facility] ReadingLocation: Weight: 155 lb : : Gender: Female BSA: 1.8 m2 : :: 1960 Age: 63 yrs BP: 138/70 mmHg: :Reason For Study: TIA : :Ordering Physician: LETICIA, : :JOSE EDUARDO Performed By: Kimberly Claudio : :Referring: JOSE EDUARDO KELLY : + + Interpretation Summary The patient was in normal sinus rhythm during the exam. The left ventricle is normal in size and wall thickness. The left ventricular ejection fraction is normal. The ejection fraction is estimated to be 60-65%. There has been no significant change in LVEF since the previous exam. The right ventricle is normal size. The right ventricular systolic function is normal. On color Doppler there is [id number] interatrial shunt. Positive bubble study was performed on last echocardiogram in 09-21-2022 so bubble study was not repeated today. There is mild to moderate tricuspid regurgitation. Compared to the prior echo exam, there has been an increase in TR severity. The right ventricular systolic pressure is estimated to be at least 31 mmHg based on an estimated right atrial pressure of 3 mm Hg. Procedure: A two-dimensional transthoracic echocardiogram with color flow and Doppler was performed. The study quality was technically adequate. Comparison is made with the echocardiogram of 2021. The heart rate ranged between 61-73 bpm during the study. The patient was in normal sinus rhythm during the exam. Left Ventricle: The left ventricle is normal in size and wall thickness. There is no thrombus. The ejection fraction is estimated to be 60-65%. The left ventricular ejection fraction is normal. There has been no significant change since the previous exam. There are no focal wall motion abnormalities. Diastolic parameters suggest probable normal left ventricular diastolic function and normal filling pressures. Right Ventricle: The right ventricle is normal size. The right ventricular systolic function is normal. Atria: The left atrium is mildly dilated. Right atrial size is normal. A patent foramen ovale is present. On color Doppler there is [id number] interatrial shunt. Positive bubble study was performed on last echocardiogram in 09-21-2022 so bubble study was not repeated today. Mitral Valve: The mitral valve is normal. There is trace mitral regurgitation. Aortic Valve: The aortic valve is trileaflet. The aortic valve opens well. There is no aortic valve stenosis. No aortic regurgitation is present. Tricuspid Valve: The tricuspid valve leaflets are thin and pliable. There is mild to moderate tricuspid regurgitation. The right ventricular systolic pressure is estimated to be at least 31 mmHg based on an estimated right atrial pressure of 3 mm Hg. Compared to the prior echo exam, there has been an increase in TR severity. Pulmonic Valve: The pulmonic valve is not well seen, but is grossly normal. There is trace pulmonic regurgitation. Great Vessels: The aortic root is normal size. The ascending aorta is normal in size. The aortic arch is normal in size. The IVC is of normal diameter and collapses greater than 50% with a sniff. This suggests a low right atrial pressure of 3 mm Hg. Pericardium/ Pleura There is no pericardial effusion. There is no pleural effusion. MMode/2D Measurements & Calculations LVIDd: 4.9 cm LVOT diam: 2.0 cm LVIDs: 2.5 cm Ao root diam: 3.4 cm FS: 48.8 % asc Aorta Diam: 2.8 cm EPSS: 0.41 cm Ao Arch Diam (Prox Trans): 2.6 cm IVSd: 0.73 cm LVPWd: 0.63 cm LV burroughs. diameter/BSA (cm/m^2): 2.7 LV sys. diameter/BSA (cm/m^2): 1.4 LA A2 area: 22.3 cm2 RA long axis: 5.4 cm LA A4 area: 25.7 cm2 RA area: 19.6 cm2 LA length (vol): 6.1 cm RA vol: 60.3 ml LA vol: 80.3 ml RA : 33.2 ml/m2 LA vol index: 44.3 ml/m2 IVC diam: 1.8 cm TAPSE: 2.4 cm Doppler Measurements & Calculations Ao V2 max: 118.3 cm/sec LVOT Max Karel: 103.2 cm/sec Ao V2 mean: 81.2 cm/sec LV V1 max P.3 mmHg Ao max P.6 mmHg LV V1 VTI: 22.3 cm Ao mean P.0 mmHg PAUL(I,D): 2.5 cm2 Ao V2 VTI: 28.0 cm PAUL(V,D): 2.7 cm2 sev ratio: 0.80 PAUL indexed to BSA (cm^2/m^2): 1.4 MV E max karel: 61.8 cm/sec TR max karel: 266.4 cm/sec MV A max karel: 53.3 cm/sec TR max P.4 mmHg MV E/A: 1.2 PA V2 max: 66.9 cm/sec Med Peak E' Karel: 6.7 cm/sec PA V2 mean: 44.0 cm/sec E/E' med: 9.2 PA mean P.91 mmHg Lat Peak E' Karel: 9.3 cm/sec E/E' lat: 6.6 E/e' average: 7.9 MV dec time: 0.20 sec SV(LVOT): 70.1 ml Reading Physician:05:20 PM
== END 2024-05-21 10:49 | disposition home or self-care (01) ==
LOC: ED 13:12 → AC 13:35
PROVIDERS: Admitting Provider Family Medicine; Emergency Provider Emergency Medicine; PCP Family Medicine; Referring Provider Emergency Medicine; Visit Provider Family Medicine
DX: R41.3 Other amnesia (principal); R41.0 Disorientation, unspecified; F41.9 Anxiety disorder, unspecified; E78.5 Hyperlipidemia, unspecified
CPT/HCPCS: 36415; 70450; 70496; 70498; 70551; 71045; 80048; 80053; 80305; 82550; 82962; 83735; 84484; 85025; 85610; 85730; 93005; 93010; 93306; 99285; 99291; G0378; Q9967

== ENCOUNTER → 2024-09-30 11:31 | Outpatient (CLI) | payer OTHER, SELFPAY ==
[2024-05-20 14:11] VITALS: BMI 24.8
--- NOTE | 2024-09-30 11:32 | DI.MG.S_ITS ---
BILATERAL DIGITAL SCREENING MAMMOGRAM 3D/2D WITH CAD: 09/30/2024 CLINICAL: Routine screening. Comparison is made to exams dated: 09/02/2022 mammogram, 09/29/2020 mammogram, and 03/25/2019 mammogram - [facility]. There are scattered areas of fibroglandular density (category b / 25%-50% glandular tissue). Current study was also evaluated with a Computer Aided Detection (CAD) system. No significant masses, calcifications, or other findings are seen in either breast. There has been no significant interval change. IMPRESSION: NEGATIVE There is no mammographic evidence of malignancy. A 1 year screening mammogram is recommended. Based on the Tyrer Cuzick model (a risk assessment model) the patient's lifetime risk is 7.7% and her 10 year risk is 3.6%. According to the ACR, ACS, and NCCN guidelines, an annual breast MRI exam along with mammogram is recommended if the patient's lifetime risk is 20% or greater. This exam was interpreted at Station ID: [id number]. NOTE: For mammograms, a report in lay terms will be sent to the patient. Approximately 15% of breast malignancies will not be visualized mammographically. In the management of a palpable breast mass, a negative mammogram must not discourage biopsy of a clinically suspicious lesion. Electronically Signed By: Bev Clements M.D., Ph.D. michael/mari:10/03/2024 05:12:16 letter sent: Normal Exam ACR BI-RADS Category 1: Negative
== END ==
PROVIDERS: PCP Family Medicine; Referring Provider Family Medicine; Visit Provider Family Medicine
DX: Z12.31 Encounter for screening mammogram for malignant neoplasm of breast (principal)
CPT/HCPCS: 77063; 77067

== ENCOUNTER 2024-10-26 15:13 | Emergency (ER) | payer OTHER, SELFPAY ==
[2024-05-20 14:11] VITALS: BMI 24.8
[2024-10-26] VITALS (15 sets, daily range): BP systolic 141–186; BP diastolic 67–86; PULSE 64–72; RESP 12–18; TEMP 36.8–37.1; O2SAT 96–99; BMI 24.0
--- NOTE | 2024-10-26 15:22 | DI.CT.S_ITS ---
PROCEDURE: CT HEAD/BRAIN WO CON INDICATIONS: loss of memory,confusion TECHNIQUE: Noncontrast 4.5 mm thick angled axial sections acquired from the foramen magnum to the vertex, with coronal and sagittal reformats. For radiation dose reduction, the following was used: automated exposure control, adjustment of mA and/or kV according to patient size. COMPARISON: [facility], CT, CT STROKE, 05/20/2024, 11:51. [facility], CT, CT ANGIO HEAD AND NECK, 05/20/2024, 11:58. [facility], CT, CT ANGIO HEAD AND NECK, 10/26/2024, 15:38. [facility], MR, MR HEAD/BRAIN WO CON, 05/20/2024, 14:35. FINDINGS: Image quality: Diagnostic. CSF spaces: Basal cisterns are patent. No extra-axial fluid collections. The ventricles are symmetric in size and shape. Brain: No intracranial bleeds or masses. There is cerebral volume loss for age, with resultant ventricular and sulcal prominence. There are periventricular and deep white matter chronic small vessel ischemic changes. There is intracranial internal carotid artery atherosclerosis. Skull and face: Calvarium and visualized facial bones appear intact, without suspicious lesions. Sinuses: Visualized sinuses and mastoids are clear. IMPRESSION: No acute intracranial pathology. Similar to priors. Dictated by: Peng Hernandez M.D. on 10/26/2024 at 14:52 Approved by: Peng Hernandez M.D. on 10/26/2024 at 14:53
--- NOTE | 2024-10-26 15:22 | DI.CT.S_ITS ---
PROCEDURE: CT ANGIO HEAD AND NECK INDICATIONS: loss of memory,confusion TECHNIQUE: After the administration of intravenous contrast, 1 mm thick sections acquired from the aortic arch through the [place] of [place]. 3-dimensional cbonhqk-pscnsheuu-bolvzkftdk (MIP) and/or volume rendering reformats were acquired of the central intracranial vasculature and neck separately. For radiation dose reduction, the following was used: automated exposure control, adjustment of mA and/or kV according to patient size. COMPARISON: [facility], CT, CT HEAD/BRAIN WO CON, 10/26/2024, 15:38. [facility], MR, MR HEAD/BRAIN WO CON, 05/20/2024, 14:35. [facility], CT, CT ANGIO HEAD AND NECK, 05/20/2024, 11:58. FINDINGS: Image quality: Limited by bolus timing, with venous contamination. There is streak artifact seen through the level of the shoulders. BRAIN: CSF spaces: Ventricles are normal in size and shape. Basal cisterns are patent. No extra-axial fluid collections. Brain: No significant abnormality of the brain can be seen. Skull and face: Calvarium and facial bones appear intact, without suspicious lesions. Orbits appear normal. Sinuses: An apparent mucous retention cysts can be seen within the left maxillary sinus. The paranasal sinuses otherwise appear clear. No abnormal fluid is seen within the mastoid air cells. HEAD CT ANGIOGRAPHY: Anterior circulation: Intracranial internal carotid arteries are normal in size and flow. The flow within the paired anterior cerebral arteries is normal and symmetric. The flow within the middle cerebral arteries is normal and symmetric. The anterior communicating artery is seen. No aneurysms are seen. Posterior circulation: Visualized portions of the vertebral arteries demonstrate normal caliber, and join to form a normal appearing basilar artery. Flow within the posterior cerebral arteries is normal and symmetric. No aneurysms are seen. NECK CT ANGIOGRAPHY: Carotid system: The great vessels demonstrate a conventional anatomy as they arise from the aortic arch. The origins of the common carotid arteries appear patent. The common carotid arteries demonstrate normal caliber and courses. The bifurcation regions are both widely patent. The internal carotid arteries demonstrate normal calibers and courses. Posterior circulation: The origins of the vertebral arteries both appear widely patent. The more superior extracranial portions of both vertebral arteries also demonstrate normal courses and calibers. They join to form a normal appearing basilar artery. Soft tissues: Visualized neck soft tissues demonstrate no suspicious abnormalities. Bones: No suspicious bony lesions. Visualized cervical spine appears normally aligned. Zqzu-lu-xvqgqpnd cervical spine degenerative change can be seen, which is worst inferiorly. IMPRESSION: No imaging explanation is found for this patient's presenting symptoms. Within the intracranial arterial system, no significant abnormality can be seen. No significant carotid abnormality can be seen. Vertebral arteries within normal limits. Any quantitative measurements of stenosis were performed using NASCET criteria. Dictated by: Peng Hernandez M.D. on 10/26/2024 at 14:54 Approved by: Peng Hernandez M.D. on 10/26/2024 at 14:56
--- NOTE | 2024-10-26 15:22 | DI.RAD.S_ITS ---
PROCEDURE: XR CHEST 1V INDICATIONS: Possible stroke TECHNIQUE: One view of the chest was acquired. COMPARISON: [facility], CR, XR CHEST 1V, 05/20/2024, 11:48. FINDINGS: Surgical changes and devices: None. Lungs and pleura: Lungs are clear. No pleural effusions or pneumothorax. Mediastinum: Mediastinal contours appear normal. Heart size is normal. Bones and chest wall: No suspicious bony lesions. Overlying soft tissues appear unremarkable. IMPRESSION: No acute cardiopulmonary pathology. Dictated by: Junior Hinton M.D. on 10/26/2024 at 16:27 Approved by: Junior Hinton M.D. on 10/26/2024 at 16:27
--- NOTE | 2024-10-26 15:29 | EKG_ITS ---
[address] [address] Test Date: 2024-10-26 Pat Name: Argelia Mccoy Department: Room: Gender: Female [employer] Supervisor: PATRICK : 1960 Requested By: Order Number: [id number] Reading MD: Dennys Whitlock Measurements Intervals [place] Rate: 72 P: 15 WI: 126 QRS: 53 QRSD: 82 T: 37 QT: 394 QTc: 431 Interpretive Statements Normal sinus rhythm Septal infarct , age undetermined Electronically Signed On 10-26-2024 15:31:46 PST by Dennys Whitlock
[2024-10-26 15:47] LABS: Add Manual Diff / Slide Review NO; Basophils Absolute Auto 100 /uL (0-100); Basophils Percent Auto 0.8 % (0-2); Eosinophils Absolute Auto 100 /uL (0-450); Eosinophils Percent Auto 1.4 % (2-4); Hematocrit 40.1 % (36-46); Hemoglobin 13.3 g/dL (12.0-16.0); Lymphocytes Absolute Auto 2100 /uL (1100-4500); Lymphocytes Percent Auto 32.6 % (25-40); Mean Corpuscular HGB Conc 33.2 % (30-36); Mean Corpuscular Hemoglobin 30.3 PG (26-34); Mean Corpuscular Volume 91.4 fL (80-100); Monocytes Absolute Auto 600 /uL (0-900); Monocytes Percent Auto 9.4 % (3-14); Neutrophils Absolute Auto 3700 /uL (1500-7000); Neutrophils Percent Auto 55.8 % (50-75); Platelet Count 178 X10^3/uL (150-400); Red Blood Cell Count 4.39 X10^6/uL (4.0-5.2); Red Cell Distribution Width 13.2 % (11.6-14.8); White Blood Cell Count 6.6 X10^3/uL (4.5-11.0)
[2024-10-26 15:50] LABS: INR 1.1 (0.9-1.3); Prothrombin Time 12.7 SECONDS (9.4-12.5)
[2024-10-26 15:53] LABS: PTT Partial Thromboplastin Tim 30 SECONDS (25.1-36.5)
[2024-10-26 15:54] LABS: Alanine Aminotransferase 47 IU/L (<35); Albumin 4.7 g/dL (3.5-5.0); Albumin Globulin Ratio 1.7 (1.0-2.8); Alkaline Phosphatase 65 U/L (38-126); Aspartate Aminotransferase 41 IU/L (14-36); BUN Creatinine Ratio 23.3 (6-22); Bilirubin Total 0.6 mg/dL (0.2-1.3); Blood Urea Nitrogen 17 mg/dL (7-17); Calcium 9.6 mg/dL (8.4-10.2); Carbon Dioxide 28 mmol/L (22-32); Chloride 105 mmol/L (98-107); Creatine Kinase 76 U/L (30-135); Estimated Glomerular Filt Rate > 60 mL/min (>60); Globulin 2.7 g/dL (1.7-4.1); Glucose 95 mg/dL (80-110); HEMOLYSIS < 15 (0-50); Magnesium 1.7 mg/dL (1.6-2.3); Potassium 3.9 mmol/L (3.4-5.1); Sodium 140 mmol/L (137-145); Total Protein 7.4 g/dL (6.3-8.2)
[2024-10-26 16:05] LABS: Troponin I < 0.012 ng/mL (0.01-0.034)
--- NOTE | 2024-10-26 16:07 | PC.NURSE ---
Patient here in department for episode of amnesia, patients spouse reports that around 1400 patient called him and couldnt remember the day of the week or where he had gone. Hx of similar amnesia back in May, had several tests and patient was told that it was stressed induced. NIH is 0
[2024-10-26 16:26] LABS: Bacteria Urine Occasional (0-1); RBC Urine 0-1/HPF (0-5/HPF); Squamous Epithelial Cell Urine 0-1 /HPF (0-5/HPF); Urine Volume 10mL (spun); WBC Urine 0-1/HPF (0-5/HPF)
[2024-10-26 16:27] LABS: Culture Indicated Urine Cult Not Indicated; Ur Creatinine Normal (Normal); Ur Specific Gravity Normal (Normal); Urine Amphetamines Negative (Negative); Urine Barbiturates Negative (Negative); Urine Benzodiazepines Negative (Negative); Urine Cocaine Negative (Negative); Urine MDMA Negative (Negative); Urine Methadone Negative (Negative); Urine Methamphetamines Negative (Negative); Urine Opiates Negative (Negative); Urine Oxycodone Negative (Negative); Urine Phencyclidine Negative (Negative); Urine THC Negative (Negative); Urine Tricyclic Antidepressant Negative (Negative); Urine pH Normal (Normal)
--- NOTE | 2024-10-26 17:08 | ED.NEUROSD ---
HPI - Neuro Symptoms/Deficit <Jose Martin Matias MD - Last Filed: 11/08/24 08:01> General Chief Complaint: Neuro Symptoms/Deficit Stated Complaint: spouse states aphasia incident Time Seen by Provider: 10/26/24 16:45 Source: patient Mode of arrival: Ambulatory History of Present Illness HPI Narrative: Patient here with . Add 2 hour episode of amnesia. She could not recall the events from 2:00 p.m. until 4:00 p.m.. No history of seizures. Patient admitted here last year in May for the similar episode. Patient was at home and could not recall any events. She does recall cleaning the bathroom at, she called her while he was at the store. He returned back home to find her very confused. No fall or injury. Patient does have history of PFO on echocardiogram. MRI of brain no acute finding last year in May for this type of event. Patient is on aspirin. Diagnosed with TIA last year. Patient is at baseline at this time. On Anticoagulants: No (asa) Related Data Home Medications Medication Instructions Recorded Confirmed atorvastatin 10 mg tablet 10 mg PO DAILY 09/10/22 05/20/24 citalopram 40 mg tablet 40 mg PO DAILY 09/10/22 05/20/24 ibandronate 150 mg tablet See Rx Instructions .Route .COMPLEX 09/10/22 05/20/24 metoprolol succinate 50 mg 50 mg PO DAILY 05/20/24 05/20/24 tablet,extended release 24 hr Previous Rx's Medication Instructions Recorded clopidogrel 75 mg tablet 75 mg PO DAILY #30 tabs 05/21/24 Allergies Allergy/AdvReac Type Severity Reaction Status Date / Time Sulfa (Sulfonamide Allergy Intermediate Swelling Verified 05/20/24 11:40 Antibiotics) Penicillins Allergy Verified 10/26/24 15:25 Review of Systems <Jose Martin Matias MD - Last Filed: 11/08/24 08:01> Review of Systems Narrative: GENERAL: Negative chills, fatigue, malaise, fever, sweats. HEENT: Negative sinus pain, ear pain, sore throat RESPIRATORY: Negative dyspnea, cough CARDIOVASCULAR: Negative chest pain, palpitations GASTROINTESTINAL: Negative nausea, vomiting, abdominal pain : Negative dysuria, frequency, hematuria MUSCULOSKELETAL: Negative muscle or bony pain SKIN: Negative rash, skin lesions NEUROLOGIC: Negative weakness, numbness negative headache negative seizure, positive amnesia ROS Unobtainable: All systems reviewed & are unremarkable except as noted in HPI and below Hematologic/Lymphatic On Anticoagulants: No (asa) Patient History <Jose Martin Matias MD - Last Filed: 11/08/24 08:01> Medical History Hyperlipidemia HTN (hypertension) Dog bite of right upper extremity Surgical History History of History of tonsillectomy Social History household members: spouse Smoking Status: Never smoker alcohol intake: current Smoking Status: Never smoker alcohol intake frequency: a few times a week Exam <Jose Martin Matias MD - Last Filed: 11/08/24 08:01> Narrative Exam Narrative: GENERAL: in no distress, not toxic not dyspneic HEAD: Normocephalic. EYES: Pupils equal round ENT: Mucous membranes moist. NECK: Trachea midline. CARDIOVASCULAR: Regular rate and rhythm RESPIRATORY: Clear to auscultation. Breath sounds equal bilaterally. No wheezes, rales, or rhonchi. GASTROINTESTINAL: Abdomen soft, non-tender EXTREMITIES: No gross deformities. BACK: No flank tenderness. NEURO: AOx4. Clear speech no facial droop light touch intact bilateral face and hands strong equal lard tub washer fast exam is negative SKIN: Warm and dry PSYCH: Not anxious, is cooperative Initial Vital Signs Initial Vital Signs: Vital Signs Temperature 98.2 F 10/26/24 15:15 Pulse Rate 69 10/26/24 15:15 Respiratory Rate 14 10/26/24 15:15 Blood Pressure 182/86 H 10/26/24 15:15 Pulse Oximetry 98 10/26/24 15:15 Oxygen Delivery Method Room Air 10/26/24 15:15 <Dahlia Panchal MD - Last Filed: 10/27/24 00:08> Initial Vital Signs Initial Vital Signs: Vital Signs Temperature 98.2 F 10/26/24 15:15 Pulse Rate 69 10/26/24 15:15 Respiratory Rate 14 10/26/24 15:15 Blood Pressure 182/86 H 10/26/24 15:15 Pulse Oximetry 98 10/26/24 15:15 Oxygen Delivery Method Room Air 10/26/24 15:15 Scores <Jose Martin Matias MD - Last Filed: 11/08/24 08:01> NIH Stroke Scale Level of Conciousness: Alert, keenly responsive Ask month/age: Answers both questions correctly. Open/close eyes, close hand: Performs both tasks correctly Best gaze horizontal: Normal Visual miller: No visual loss Facial palsy: Normal symetrical movement Left arm drift: No drift for full 10 sec Right arm drift: No drift for full 10 sec Left leg drift: No drift for full 5 sec Right leg drift: No drift for full 5 sec Limb ataxia: Absent Sensory on face/arms/legs: Normal, no sensory loss Best language: No aphasia, normal Dysarthria: Normal Extinction or inattention: No abnormality Total NIH Stroke scale score: 0 <Dahlia Panchal MD - Last Filed: 10/27/24 00:08> NIH Stroke Scale Total NIH Stroke scale score: 0 Course <Jose Martin Matias MD - Last Filed: 11/08/24 08:01> Orders Ordered: Discontinued Medications Ondansetron HCl (Ondansetron 4 Mg/2 Ml Inj) 4 mg IV NOW PRN PRN Reason: Nausea And Vomiting Ondansetron HCl (Ondansetron 4 Mg Odt) 4 mg SL NOW PRN PRN Reason: Nausea And Vomiting Sodium Chloride (Sodium Chloride 0.9% Flush) 50 ml IV NOW ONE Stop: 10/26/24 17:11 Last Admin: 10/26/24 17:33 Dose: 50 ml Documented By: SMITH Vital Signs Vital signs: Vital Signs - 8 hr 10/26/24 16:30 10/26/24 16:30 10/26/24 17:00 Temperature Pulse Rate 67 67 Respiratory Rate 18 16 Blood Pressure 158/79 H Pulse Oximetry 98 97 Oxygen Delivery Method 10/26/24 17:00 10/26/24 17:30 10/26/24 17:31 Temperature Pulse Rate 66 Respiratory Rate 18 Blood Pressure 166/79 H 159/74 H Pulse Oximetry 97 Oxygen Delivery Method 10/26/24 17:31 10/26/24 18:00 10/26/24 18:00 Temperature Pulse Rate 65 64 Respiratory Rate 16 14 Blood Pressure 143/67 H Pulse Oximetry 96 97 Oxygen Delivery Method 10/26/24 18:30 10/26/24 18:32 10/26/24 18:32 Temperature Pulse Rate 68 67 Respiratory Rate Blood Pressure 180/84 H Pulse Oximetry 96 98 Oxygen Delivery Method 10/26/24 19:00 10/26/24 19:00 10/26/24 19:30 Temperature Pulse Rate 67 Respiratory Rate 18 Blood Pressure 151/73 H 141/73 H Pulse Oximetry 98 Oxygen Delivery Method 10/26/24 19:30 10/26/24 19:56 Temperature 98.8 F Pulse Rate 65 Respiratory Rate Blood Pressure Pulse Oximetry 96 Oxygen Delivery Method Room Air <Dahlia Panchal MD - Last Filed: 10/27/24 00:08> Orders Ordered: Discontinued Medications Ondansetron HCl (Ondansetron 4 Mg/2 Ml Inj) 4 mg IV NOW PRN PRN Reason: Nausea And Vomiting Ondansetron HCl (Ondansetron 4 Mg Odt) 4 mg SL NOW PRN PRN Reason: Nausea And Vomiting Sodium Chloride (Sodium Chloride 0.9% Flush) 50 ml IV NOW ONE Stop: 10/26/24 17:11 Last Admin: 10/26/24 17:33 Dose: 50 ml Documented By: SMITH Vital Signs Vital signs: Vital Signs - 8 hr 10/26/24 16:30 10/26/24 16:30 10/26/24 17:00 Temperature Pulse Rate 67 67 Respiratory Rate 18 16 Blood Pressure 158/79 H Pulse Oximetry 98 97 Oxygen Delivery Method 10/26/24 17:00 10/26/24 17:30 10/26/24 17:31 Temperature Pulse Rate 66 Respiratory Rate 18 Blood Pressure 166/79 H 159/74 H Pulse Oximetry 97 Oxygen Delivery Method 10/26/24 17:31 10/26/24 18:00 10/26/24 18:00 Temperature Pulse Rate 65 64 Respiratory Rate 16 14 Blood Pressure 143/67 H Pulse Oximetry 96 97 Oxygen Delivery Method 10/26/24 18:30 10/26/24 18:32 10/26/24 18:32 Temperature Pulse Rate 68 67 Respiratory Rate Blood Pressure 180/84 H Pulse Oximetry 96 98 Oxygen Delivery Method 10/26/24 19:00 10/26/24 19:00 10/26/24 19:30 Temperature Pulse Rate 67 Respiratory Rate 18 Blood Pressure 151/73 H 141/73 H Pulse Oximetry 98 Oxygen Delivery Method 10/26/24 19:30 10/26/24 19:56 Temperature 98.8 F Pulse Rate 65 Respiratory Rate Blood Pressure Pulse Oximetry 96 Oxygen Delivery Method Room Air MDM - Neuro Symptoms/Deficit <Jose Martin Matias MD - Last Filed: 11/08/24 08:01> Lab Data 10/26/24 15:34 10/26/24 15:34 Labs: Lab Results 10/26/24 10/26/24 Range/Units 15:34 16:03 WBC 6.6 (4.5-11.0) X10^3/uL RBC 4.39 (4.0-5.2) X10^6/uL Hgb 13.3 (12.0-16.0) g/dL Hct 40.1 (36-46) % MCV 91.4 (80-100) fL MCH 30.3 (26-34) PG MCHC 33.2 (30-36) % RDW 13.2 (11.6-14.8) % Plt Count 178 (150-400) X10^3/uL Neut % (Auto) 55.8 (50-75) % Lymph % (Auto) 32.6 (25-40) % Graves % (Auto) 9.4 (3-14) % Eos % (Auto) 1.4 L (2-4) % Baso % (Auto) 0.8 (0-2) % Neut # (Auto) 3700 (6349-5822) /uL Lymph # (Auto) 2100 (3990-8760) /uL Graves # (Auto) 600 (0-900) /uL Eos # (Auto) 100 (0-450) /uL Baso # (Auto) 100 (0-100) /uL PT 12.7 H (9.4-12.5) SECONDS INR 1.1 (0.9-1.3) APTT 30 (25.1-36.5) SECONDS Sodium 140 (137-145) mmol/L Potassium 3.9 (3.4-5.1) mmol/L Chloride 105 (98-107) mmol/L Carbon Dioxide 28 (22-32) mmol/L BUN 17 (7-17) mg/dL Creatinine 0.73 (0.52-1.04) mg/dL Estimated GFR > 60 (>60) mL/min BUN/Creatinine Ratio 23.3 H (6-22) Glucose 95 (80-110) mg/dL Calcium 9.6 (8.4-10.2) mg/dL Magnesium 1.7 (1.6-2.3) mg/dL Total Bilirubin 0.6 (0.2-1.3) mg/dL AST 41 H (14-36) IU/L ALT 47 H (<35) IU/L Alkaline Phosphatase 65 (38-126) U/L Total Creatine Kinase 76 (30-135) U/L Troponin I < 0.012 (0.01-0.034) ng/mL Total Protein 7.4 (6.3-8.2) g/dL Albumin 4.7 (3.5-5.0) g/dL Globulin 2.7 (1.7-4.1) g/dL Albumin/Globulin Ratio 1.7 (1.0-2.8) Urine RBC 0-1/hpf (0-5/HPF) Urine WBC 0-1/hpf (0-5/HPF) Ur Squamous Epith Cells 0-1 /hpf (0-5/HPF) Urine Bacteria Occasional (0-1) (None) Ur Culture Indicated? Cult not indicated Vol Urine Centrifuged 10ml (spun) U Opiates 300ng/mL cut Negative (Negative) Ur Oxycodone Screen Negative (Negative) Urine Methadone Screen Negative (Negative) Ur Barbiturates Screen Negative (Negative) U Tricyclic Antidepress Negative (Negative) Ur Phencyclidine Scrn Negative (Negative) Ur Amphetamines Screen Negative (Negative) U Methamphetamines Scrn Negative (Negative) Ur MDMA Scrn (Ecstasy) Negative (Negative) U Benzodiazepines Scrn Negative (Negative) Urine Cocaine Screen Negative (Negative) U Marijuana (THC) Screen Negative (Negative) Urine pH Normal (Normal) Urine Specific [place] Normal (Normal) Ur Creatinine Normal (Normal) Point of Care Testing Glucose POC [address] scan - head: Radiologist's Impression: [address] [address] [address] Scan Report Signed Patient: Argelia Mccoy V MR#: [id number] : 1960 Acct:[id number] Age/Sex: 63 / F Date of Service: 10/26/24 Loc: ED Accession Number: [id number] Procedure: CT head/brain wo con Ordering Provider: Jose Martin Matias MD PROCEDURE: CT HEAD/BRAIN WO CON INDICATIONS: loss of memory,confusion TECHNIQUE: Noncontrast 4.5 mm thick angled axial sections acquired from the foramen magnum to the vertex, with coronal and sagittal reformats. For radiation dose reduction, the following was used: automated exposure control, adjustment of mA and/or kV according to patient size. COMPARISON: [facility], CT, CT STROKE, 05/20/2024, 11:51. [facility], CT, CT ANGIO HEAD AND NECK, 05/20/2024, 11:58. [facility], CT, CT ANGIO HEAD AND NECK, 10/26/2024, 15:38. [facility], MR, MR HEAD/BRAIN WO CON, 05/20/2024, 14:35. FINDINGS: Image quality: Diagnostic. CSF spaces: Basal cisterns are patent. No extra-axial fluid collections. The ventricles are symmetric in size and shape. Brain: No intracranial bleeds or masses. There is cerebral volume loss for age, with resultant ventricular and sulcal prominence. There are periventricular and deep white matter chronic small vessel ischemic changes. There is intracranial internal carotid artery atherosclerosis. Skull and face: Calvarium and visualized facial bones appear intact, without suspicious lesions. Sinuses: Visualized sinuses and mastoids are clear. IMPRESSION: No acute intracranial pathology. Similar to priors. Dictated by: Peng Hernandez M.D. on 10/26/2024 at 14:52 Approved by: Peng Hernandez M.D. on 10/26/2024 at 14:53 Chest x-ray: Radiologist's Impression: [address] [address] XRay Report Signed Patient: Argelia Mccoy V MR#: [id number] : 1960 Acct:[id number] Age/Sex: 63 / F Date of Service: 10/26/24 Loc: ED Accession Number: [id number] Procedure: XR chest 1V Ordering Provider: Jose Martin Matias MD PROCEDURE: XR CHEST 1V INDICATIONS: Possible stroke TECHNIQUE: One view of the chest was acquired. COMPARISON: [facility], CR, XR CHEST 1V, 05/20/2024, 11:48. FINDINGS: Surgical changes and devices: None. Lungs and pleura: Lungs are clear. No pleural effusions or pneumothorax. Mediastinum: Mediastinal contours appear normal. Heart size is normal. Bones and chest wall: No suspicious bony lesions. Overlying soft tissues appear unremarkable. IMPRESSION: No acute cardiopulmonary pathology. Dictated by: Junior Hinton M.D. on 10/26/2024 at 16:27 Approved by: Junior Hinton M.D. on 10/26/2024 at 16:27 CTA - brain/neck: Radiologist's Impression: [address] [address] [address] Scan Report Signed Patient: Argelia Mccoy V MR#: [id number] : 1960 Acct:[id number] Age/Sex: 63 / F Date of Service: 10/26/24 Loc: ED Accession Number: [id number] Procedure: CT angio head and neck Ordering Provider: Jose Martin Matias MD PROCEDURE: CT ANGIO HEAD AND NECK INDICATIONS: loss of memory,confusion TECHNIQUE: After the administration of intravenous contrast, 1 mm thick sections acquired from the aortic arch through the [place]. 3-dimensional hpfvnfk-domjzzpay-lznzcdlbly (MIP) and/or volume rendering reformats were acquired of the central intracranial vasculature and neck separately. For radiation dose reduction, the following was used: automated exposure control, adjustment of mA and/or kV according to patient size. COMPARISON: [facility], CT, CT HEAD/BRAIN WO CON, 10/26/2024, 15:38. [facility], MR, MR HEAD/BRAIN WO CON, 05/20/2024, 14:35. [facility], CT, CT ANGIO HEAD AND NECK, 05/20/2024, 11:58. FINDINGS: Image quality: Limited by bolus timing, with venous contamination. There is streak artifact seen through the level of the shoulders. BRAIN: CSF spaces: Ventricles are normal in size and shape. Basal cisterns are patent. No extra-axial fluid collections. Brain: No significant abnormality of the brain can be seen. Skull and face: Calvarium and facial bones appear intact, without suspicious lesions. Orbits appear normal. Sinuses: An apparent mucous retention cysts can be seen within the left maxillary sinus. The paranasal sinuses otherwise appear clear. No abnormal fluid is seen within the mastoid air cells. HEAD CT ANGIOGRAPHY: Anterior circulation: Intracranial internal carotid arteries are normal in size and flow. The flow within the paired anterior cerebral arteries is normal and symmetric. The flow within the middle cerebral arteries is normal and symmetric. The anterior communicating artery is seen. No aneurysms are seen. Posterior circulation: Visualized portions of the vertebral arteries demonstrate normal caliber, and join to form a normal appearing basilar artery. Flow within the posterior cerebral arteries is normal and symmetric. No aneurysms are seen. NECK CT ANGIOGRAPHY: Carotid system: The great vessels demonstrate a conventional anatomy as they arise from the aortic arch. The origins of the common carotid arteries appear patent. The common carotid arteries demonstrate normal caliber and courses. The bifurcation regions are both widely patent. The internal carotid arteries demonstrate normal calibers and courses. Posterior circulation: The origins of the vertebral arteries both appear widely patent. The more superior extracranial portions of both vertebral arteries also demonstrate normal courses and calibers. They join to form a normal appearing basilar artery. Soft tissues: Visualized neck soft tissues demonstrate no suspicious abnormalities. Bones: No suspicious bony lesions. Visualized cervical spine appears normally aligned. Igmj-oq-xabtqcbu cervical spine degenerative change can be seen, which is worst inferiorly. IMPRESSION: No imaging explanation is found for this patient's presenting symptoms. Within the intracranial arterial system, no significant abnormality can be seen. No significant carotid abnormality can be seen. Vertebral arteries within normal limits. Any quantitative measurements of stenosis were performed using NASCET criteria. Dictated by: Peng Hernandez M.D. on 10/26/2024 at 14:54 Approved by: Peng Hernandez M.D. on 10/26/2024 at 14:56 [facility] Narrative Medical decision making narrative: Patient here with . Add 2 hour episode of amnesia. She could not recall the events from 2:00 p.m. until 4:00 p.m.. No history of seizures. Patient admitted here last year in May for the similar episode. Patient was at home and could not recall any events. She does recall cleaning the bathroom at, she called her while he was at the store. He returned back home to find her very confused. No fall or injury. Patient does have history of PFO on echocardiogram. MRI of brain no acute finding last year in May for this type of event. Patient is on aspirin. Diagnosed with TIA last year. Patient is at baseline at this time. After history and exam CBC CMP EKG CT head CT angiogram head and neck [facility] Medical records reviewed: Discharge summary from May of last year Differential considered: Includes but not limited to TIA stroke seizure transient global amnesia Lab Test results independently reviewed as above. Pertinent findings: WBC 6.6 hemoglobin 13.3 INR 1.1 sodium 140 potassium 3.9 BUN 17 creatinine 0.73 troponin less than 0.012 negative drug screen Independently reviewed EKG normal sinus rhythm rate 72 Imaging studies independently reviewed: CT head CT angiogram head and neck no acute finding Consultations: 5:15 p.m.. Spoke with on-call primary care, Dr. Crawford, on-call for Dr. Gardiner,, she recommends consulting Neurology Services for disposition plan. This may be transient global amnesia. 5:[address] JONES, she is on-call tele stroke [facility], recommends patient getting MRI brain tonight. No echocardiogram indicated. If negative MRI then likely transient global amnesia. And patient can be discharged home and follow up with primary care. Treatments: Normal saline Re-evaluations: 5:00 p.m.. Updated patient and results. Awaiting call back from primary care for disposition. Patient at baseline at this time. Exam and laboratory studies are reassuring. 6:[address] Matias: Sign out to Dr. Panchal, MRI is pending. I have spoken with Neurology and primary care. If negative MRI of the brain patient may go home Discussion: No TNK or thrombolytics at this time. Symptoms have resolved. No endovascular studies, no large vessel occlusion. Diagnosis: Dr. Panchal - care of patient signed to me. MRI negative for acute findings. Patient instructed on MRI results, counseled to f/u with neurology <Dahila Panchal MD - Last Filed: 10/27/24 00:08> Lab Data Labs: Lab Results 10/26/24 10/26/24 Range/Units 15:34 16:03 WBC 6.6 (4.5-11.0) X10^3/uL RBC 4.39 (4.0-5.2) X10^6/uL Hgb 13.3 (12.0-16.0) g/dL Hct 40.1 (36-46) % MCV 91.4 (80-100) fL MCH 30.3 (26-34) PG MCHC 33.2 (30-36) % RDW 13.2 (11.6-14.8) % Plt Count 178 (150-400) X10^3/uL Neut % (Auto) 55.8 (50-75) % Lymph % (Auto) 32.6 (25-40) % Graves % (Auto) 9.4 (3-14) % Eos % (Auto) 1.4 L (2-4) % Baso % (Auto) 0.8 (0-2) % Neut # (Auto) 3700 (4679-1592) /uL Lymph # (Auto) 2100 (0614-9266) /uL Graves # (Auto) 600 (0-900) /uL Eos # (Auto) 100 (0-450) /uL Baso # (Auto) 100 (0-100) /uL PT 12.7 H (9.4-12.5) SECONDS INR 1.1 (0.9-1.3) APTT 30 (25.1-36.5) SECONDS Sodium 140 (137-145) mmol/L Potassium 3.9 (3.4-5.1) mmol/L Chloride 105 (98-107) mmol/L Carbon Dioxide 28 (22-32) mmol/L BUN 17 (7-17) mg/dL Creatinine 0.73 (0.52-1.04) mg/dL Estimated GFR > 60 (>60) mL/min BUN/Creatinine Ratio 23.3 H (6-22) Glucose 95 (80-110) mg/dL Calcium 9.6 (8.4-10.2) mg/dL Magnesium 1.7 (1.6-2.3) mg/dL Total Bilirubin 0.6 (0.2-1.3) mg/dL AST 41 H (14-36) IU/L ALT 47 H (<35) IU/L Alkaline Phosphatase 65 (38-126) U/L Total Creatine Kinase 76 (30-135) U/L Troponin I < 0.012 (0.01-0.034) ng/mL Total Protein 7.4 (6.3-8.2) g/dL Albumin 4.7 (3.5-5.0) g/dL Globulin 2.7 (1.7-4.1) g/dL Albumin/Globulin Ratio 1.7 (1.0-2.8) Urine RBC 0-1/hpf (0-5/HPF) Urine WBC 0-1/hpf (0-5/HPF) Ur Squamous Epith Cells 0-1 /hpf (0-5/HPF) Urine Bacteria Occasional (0-1) (None) Ur Culture Indicated? Cult not indicated Vol Urine Centrifuged 10ml (spun) U Opiates 300ng/mL cut Negative (Negative) Ur Oxycodone Screen Negative (Negative) Urine Methadone Screen Negative (Negative) Ur Barbiturates Screen Negative (Negative) U Tricyclic Antidepress Negative (Negative) Ur Phencyclidine Scrn Negative (Negative) Ur Amphetamines Screen Negative (Negative) U Methamphetamines Scrn Negative (Negative) Ur MDMA Scrn (Ecstasy) Negative (Negative) U Benzodiazepines Scrn Negative (Negative) Urine Cocaine Screen Negative (Negative) U Marijuana (THC) Screen Negative (Negative) Urine pH Normal (Normal) Urine Specific [place] Normal (Normal) Ur Creatinine Normal (Normal) Point of Care Testing Glucose POC 79 MDM Narrative Medical decision making narrative: Patient here with . Add 2 hour episode of amnesia. She could not recall the events from 2:00 p.m. until 4:00 p.m.. No history of seizures. Patient admitted here last year in May for the similar episode. Patient was at home and could not recall any events. She does recall cleaning the bathroom at, she called her while he was at the store. He returned back home to find her very confused. No fall or injury. Patient does have history of PFO on echocardiogram. MRI of brain no acute finding last year in May for this type of event. Patient is on aspirin. Diagnosed with TIA last year. Patient is at baseline at this time. After history and exam CBC CMP EKG CT head CT angiogram head and neck [facility] Medical records reviewed: Discharge summary from May of last year Differential considered: Includes but not limited to TIA stroke seizure transient global amnesia Lab Test results independently reviewed as above. Pertinent findings: WBC 6.6 hemoglobin 13.3 INR 1.1 sodium 140 potassium 3.9 BUN 17 creatinine 0.73 troponin less than 0.012 negative drug screen Independently reviewed EKG normal sinus rhythm rate 72 Imaging studies independently reviewed: CT head CT angiogram head and neck no acute finding Consultations: 5:15 p.m.. Spoke with on-call primary care, Dr. Crawford, on-call for Dr. Gardiner,, she recommends consulting Neurology Services for disposition plan. This may be transient global amnesia. 5:[address] JONES, she is on-call tele stroke [facility], recommends patient getting MRI brain tonight. No echocardiogram indicated. If negative MRI then likely transient global amnesia. And patient can be discharged home and follow up with primary care. Treatments: Normal saline Re-evaluations: 5:00 p.m.. Updated patient and results. Awaiting call back from primary care for disposition. Patient at baseline at this time. Exam and laboratory studies are reassuring. 6:[address] Matias: Sinus Dr. Panchal, MRI is pending. I have spoken with Neurology and primary care. If negative MRI of the brain patient may go home Discussion: No TNK or thrombolytics at this time. Symptoms have resolved. No endovascular studies, no large vessel occlusion. Diagnosis: Dr. Panchal - care of patient signed to me. MRI negative for acute findings. Patient instructed on MRI results, counseled to f/u with neurology Discharge Plan Departure Patient Disposition: Home Clinical Impression: Amnesia Instructions: DI for Transient Global Amnesia Activity Restrictions/Additional Instructions: Your laboratory work, CT imaging, an MRI today were all normal. There is no sign of acute stroke. It is extremely important that you continue to follow up with your primary care and a neurologist for your symptoms. Prescriptions: No Action metoprolol succinate 50 mg tablet extended release 24 hr 50 mg PO DAILY clopidogrel 75 mg Tablet 75 mg PO DAILY Qty: 30 1RF ibandronate 150 mg tablet See Rx Instructions .ROUTE .COMPLEX Patient Comments: TAKE ONE TABLET BY MOUTH ONCE MONTHLY WITH LARGE GLASS OF WATER. DO NOT LAY DOWN FOR 45 MINUTES AFTER TAKING. Rx Instructions: bone density drug citalopram 40 mg tablet 40 mg PO DAILY Patient Comments: TAKE 1 TABLET BY MOUTH DAILY FOR DEPRESSION OR ANXIETY atorvastatin 10 mg tablet 10 mg PO DAILY Patient Comments: TAKE 1 TABLET BY MOUTH EVERY DAY Referrals: Dmitriy Gardiner MD [Primary Care Provider] - Stand Alone Forms: Patient Portal/API/Survey
[2024-10-26] MEDS: SODIUM CHLORIDE 0.9% FLUSH 50 ML IV (17:33)
--- NOTE | 2024-10-26 17:49 | DI.MRI.S_ITS ---
PROCEDURE: MR HEAD/BRAIN WO CON INDICATIONS: Altered mental status TECHNIQUE: Noncontrast axial T1 spin echo, axial T2 fast spin echo, sagittal and axial FLAIR, coronal T2 fast spin echo, axial gradient echo, axial diffusion and ADC through the brain. COMPARISON: [facility], MR, MR HEAD/BRAIN WO CON, 05/20/2024, 14:35. [facility], CT, CT ANGIO HEAD AND NECK, 10/26/2024, 15:38. FINDINGS: Image quality: Diagnostic CSF spaces: Patent cisterns. Relative ventriculomegaly is similar to prior imaging. Volume: Overall mild volume loss Brain: There is no acute diffusion restriction. No significant area parenchymal edema. No acute intracranial hematoma Craniofacial structures: No significant paranasal sinus opacity. IMPRESSION: No acute infarct or intracranial hematoma Dictated by: William Lo M.D. on 10/26/2024 at 19:16 Approved by: William Lo M.D. on 10/26/2024 at 19:18
== END 2024-10-26 19:57 | disposition home or self-care (01) ==
PROVIDERS: Emergency Provider Emergency Medicine; PCP Family Medicine
DX: R41.3 Other amnesia (principal); Z79.82 Long term (current) use of aspirin; R29.700 NIHSS score 0
CPT/HCPCS: 36415; 70450; 70496; 70498; 70551; 71045; 80053; 80305; 81015; 82550; 82962; 83735; 84484; 85025; 85610; 85730; 93005; 99284; Q9967